=== PATIENT | male | born 1935 | race Caucasian/White ===

== ENCOUNTER 2025-04-20 12:22 | Outpatient (OUT) | payer MEDICARE, OTHER, SELFPAY ==
--- OUTSIDE RECORDS SUMMARY | 2025-04-13 10:20 | XMS_ITS | Encounter Summary ---
Author Organization [facility] Address [address] [place] [address] Care Team Providers Care Social Service Liaison Name Role Phone Helen Cagle MD Unavailable Helen Cagle MD Primary Care Provider [phone] Farzana Jimenez RN Unavailable [phone] Reason for Visit * ReasonCommentsMedicare Annual Wellness Visit Subsequent Encounter Details DateTypeDepartmentCare Team (Latest Contact Info)Zjthygrxqac65/19/2025 10:20 AM ESTOffice Visit [facility] [address] [place] [address] Helen Cagle MD [address] [place], [place] [phone] Chronic atrial fibrillation (HCC) (Primary Dx); Hyperglycemia; Routine general medical examination at a health care facility; Primary open angle glaucoma (POAG) of both eyes, mild stage; Morbid obesity (CMS-HCC); Mixed hyperlipidemia; Arthritis of both hips; Acquired hypothyroidism; Renal cyst, acquired, right; Liver lesion, right lobe; Other specified glaucoma, unspecified laterality; Benign essential hypertension; Thrombophilia (HHS-HCC); Sensorineural hearing loss, asymmetrical; 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 Social History Tobacco UseTypesPacks/DayYears UsedDateSmoking Tobacco: UztglgJcfpzxffnb703.1 1953 - 11/23/1976PipeCigarsSmokeless Tobacco: Never Tobacco Cessation:Counseling Given: Not Answered Alcohol UseStandard Drinks/WeekCommentsNot Currently2 (1 standard drink = 0.6 oz pure alcohol)social [id number] Health LiteracyAnswerDate RecordedHow often do you need to have someone help you when you read instructions, pamphlets, or other written material from your doctor or pharmacy?Ojnooh3204/05/2024Humiliation, Afraid, Rape, and Kick questionnaireAnswerDate RecordedWithin the last year, have you been afraid of your partner or ex-partner?No11/26/2022Within the last year, have you been humiliated or emotionally abused in other ways by your partner or ex-partner?No11/26/2022Within the last year, have you been kicked, hit, slapped, or otherwise physically hurt by your partner or ex-partner?No 11/26/2022Within the last year, have you been raped or forced to have any kind of sexual activity by your partner or ex-partner?No11/26/2022Social Connection and Isolation PanelAnswerDate RecordedIn a typical week, how many times do you talk on the phone with family, friends, or neighbors?More than three times a week04/05/2024How often do you get together with friends or relatives?More than three times a week04/05/2024How often do you attend caodaism or tenriism services?More than 4 times per year4Do you belong to any clubs or organizations such as caodaism groups, unions, fraternal or athletic groups, or school groups?Yes04/05/2024How often do you attend meetings of the clubs or organizations you belong to?More than 4 times per year04/05/2024re you , , , , never , or living with a partner? 04/05/2024UDIT-CAnswerDate RecordedQ1: How often do you have a drink containing alcohol?Monthly or less04/05/2024Q2: How many drinks containing alcohol do you have on a typical day when you are drinking?1 or Q3: How often do you have six or more drinks on one occasion?Never04/05/2024Overall Financial Resource Strain (CARDIA)AnswerDate RecordedHow hard is it for you to pay for the very basics like food, housing, medical care, and heating?Not hard at all 04/05/2024HQ-2AnswerDate RecordedPatient Health Questionnaire-2 Score0 04/06/2025[facility] [place] [facility] - Occupational Stress QuestionnaireAnswerDate RecordedDo you feel stress - tense, restless, nervous, or anxious, or unable to sleep at night because yourmind is troubled all the time - these days?Only a gfrtbe4104/05/2024Exercise Vital SignAnswerDate Recorded On average, how many days per week do you engage in moderate to strenuous exercise (like a brisk walk)?4 days04/05/2024On average, how many minutes do you engage in exercise at this level?10 min04/05/2024Hunger Vital SignAnswerDate RecordedWithin the past 12 months, you worried that your food would run out before you got the money to buymore.Never true04/05/2024Within the past 12 months, the food you bought just didn't last and you didn't have money to get more.Never true04/05/2024RAPARE - TransportationAnswerDate RecordedIn the past 12 months, has lack of transportation kept you from medical appointments or from getting medications?No04/05/2024In the past 12 months, has lack of transportation kept you from meetings, work, or from getting things needed for daily living?No04/05/2024Housing Stability Vital SignAnswerDate RecordedIn the last 12 months, was there a time when you were not able to pay the mortgage or rent on time?No11/26/2022In the last 12 months, how many places have you lived?1 11/26/2022In the last 12 months, was there a time when you did not have a steady place to sleep or slept in ashelter (including now)?No11/26/2022Housing Stability Vital SignAnswerDate RecordedIn the last 12 months, was there a time when you were not able to pay the mortgage or rent on time?No04/05/2024In the past 12 months, how many times have you moved where you were living? At any time in the past 12 months, were you homeless or living in a mcfp (including now)?No04/05/2024Sex and Gender InformationValueDate RecordedSex Assigned at BirthNot on fileLegal UsfNzid4808/07/2022 7:37 PM EDTGender Identity Male08/07/2022 7:37 PM EDTSexual OrientationNot on filedocumented as of this encounter Last Filed Vital Signs Vital SignReadingTime TakenCommentsBlood Rpccblxq626/6404/13/2025 9:59 AM EST Cmvwk160504/13/2025 9:59 AM ESTTemperature--Respiratory Ymnu138006/13/2024 9:59 AM ESTOxygen Aqlsscxnyt78%04/13/2025 9:59 AM ESTInhaled Oxygen Concentration-- Xxpaek832 kg (222 lb 6.4 oz)04/13/2025 9:59 AM HODLjqhhr961.4 cm (5' 10.25 ) 04/13/2025 9:59 AM ESTBody Mass Index31.6804/13/2025 9:59 AM ESTdocumented in this encounter Progress Notes * Helen Cagle MD - 04/13/2025 10:20 AM ESTAssociated Problem(s): Chronic atrial fibrillation (HCC) Orders: CBC and differential; Future Comprehensive metabolic panel; Future Unable to tolerate anticoagulation due to g bleeds Managed by cardiology * Helen Cagle MD - 04/13/2025 10:20 AM ESTAssociated Problem(s): Primary open angle glaucoma (POAG) of both eyes, mild stage Manaed by optho * Helen Cagle MD - 04/13/2025 10:20 AM ESTAssociated Problem(s): Morbid obesity (CMS-HCC) stable * Helen Cagle MD - 04/13/2025 10:20 AM ESTAssociated Problem(s): Mixed hyperlipidemia On statin * Helen Cagle MD - 04/13/2025 10:20 AM ESTAssociated Problem(s): Liver lesion, right lobe * Helen Cagle MD - 04/13/2025 10:20 AM ESTAssociated Problem(s): Hip arthritis * Helen Cagle MD - 04/13/2025 10:20 AM ESTAssociated Problem(s): Acquired hypothyroidism levothyroxine * Helen Cagle MD - 04/13/2025 10:20 AM ESTAssociated Problem(s): Renal cyst, acquired, right * Helen Cagle MD - 04/13/2025 10:20 AM ESTAssociated Problem(s): Glaucoma Managed by optho * Helen Cagle MD - 04/13/2025 10:20 AM ESTAssociated Problem(s): Benign essential hypertension Stable norvasc terazosin * Helen Cagle MD - 04/13/2025 10:20 AM ESTAssociated Problem(s): Thrombophilia (HHS-HCC) * Helen Cagle MD - 04/13/2025 10:20 AM ESTAssociated Problem(s): Sensorineural hearing loss, asymmetrical * Helen Cagle MD - 04/13/2025 10:20 AM EST Images from the original note were not included. Subjective ?Quick Links Last Note in Specialty Snapshot Edit RFV/CC Edit Screenings Current Meds Patient ID: Rhonda Pond is a 89 y.o. male who presents for Medicare Annual Wellness Visit Subsequent. HPI Over the past 2 weeks, how often have you been bothered by any of the following problems? Little interest or pleasure in doing things: (Patient-Rptd) (P) Not at all Feeling down, depressed, or hopeless: (Patient-Rptd) (P) Not at all Patient Health Questionnaire-2 Score: (Patient-Rptd) (P) 0 Over the past 2 weeks, how often have you been bothered by any of the following problems? Trouble falling or staying asleep, or sleeping too much: Not at all Feeling tired or having little energy: Not at all Poor appetite or overeating: Not at all Feeling bad about yourself - or that you are a failure or have let yourself or your family down: Not at all Trouble concentrating on things, such as reading the newspaper or watching television: Not at all Moving or speaking so slowly that other people could have noticed? Or the opposite - being so fidgety or restless that you have been moving around a lot more than usual.: Not at all Thoughts that you would be better off or hurting yourself in some way: Not at all Patient Health Questionnaire-9 Score: 0 Ascencio Fall Risk History of Falling, Immediate or Within 3 Months: (Patient-Rptd) (P) No Secondary Diagnosis: (Patient-Rptd) (P) No Ambulatory Aid: (Patient-Rptd) (P) Crutches/cane/walker Intravenous Therapy/Heparin Lock: (Patient-Rptd) (P) Yes Gait/Transferring: (Patient-Rptd) (P) Normal/bedrest/immobile Mental Status: (Patient-Rptd) (P) Oriented to own ability Ascencio Fall Risk Score: (Patient-Rptd) (P) 35 Health Risk Assessment Form Do you need help eating, bathing, using the toilet, dressing, or getting around your home?: (Patient-Rptd) (P) No Can you prepare your own meals?: (Patient-Rptd) (P) No Can you do your own housework without help?: Yes Can you shop for groceries or clothes without help?: (Patient-Rptd) (P) Yes Do you exercise for about 20 minutes 3 or more days a week?: (Patient-Rptd) (P) No How confident are you that you can control and manage most of your health problems?: (Patient-Rptd)(P) Somewhat confident Can you mange your money, credit cards and accounts, pay bills and taxes?: (Patient-Rptd) (P) Yes Vision Screening: Yes, no gross abnormalities Hearing Screening: Yes, no gross abnormalities Cognitive Screening Self Assessment: No overt cognitive deficiency is apparent by direct observation Three Word Registration: [place], [place], Pickle Clock Drawing: Normal Clock - 2 Three Word Recall: All 3 words correct - 3 Total Score (0-5 Points): 5 Pain Assessment Pain Score: (Patient-Rptd) (P) 4 History of Present Illness The patient is an 89-year-old male who presents for preoperative clearance. He has been in communication with his surgical aide regarding the use of Eliquis. He reports no chest pain but experiences shortness of breath during rapid walking or simultaneous talking and walking,which resolves quickly. He maintains a regular walking routine. He has a history of gastrointestinal bleeding and is scheduled for surgery with Dr. Medina. ?Quick Review Review Full History Edit History Meds - Current Medications[1] --- PMH - A-fib (HCC) Actinic keratosis Allergic Cataract Clotting disorder (HHS-HCC) Glaucoma HL (hearing loss) Hypertension Iron deficiency anemia due to chronic blood loss Varicella Visual impairment Objective ?Quick Links Add Vitals Timeline (Adult) Labs Imaging Results Review Trend Vitals ?? Avoid pulling in long tables of results. Comment on relevant results to support your medical decision making. BP 116/64 (BP Location: Left arm, Patient Position: Sitting, BP Cuff Size: Adult) Pulse 57 Resp18 Ht 5' 10.25 Wt 222 lb 6.4 oz SpO2 96% BMI 31.68 kg/m?? Physical Exam Constitutional: Appearance: He is normal weight. HENT: Head: Normocephalic and atraumatic. Nose: Nose normal. No congestion. Mouth/Throat: Mouth: Mucous membranes are moist. Eyes: Extraocular Movements: Extraocular movements intact. Pupils: Pupils are equal, round, and reactive to light. Cardiovascular: Rate and Rhythm: Normal rate and regular rhythm. Pulmonary: Effort: Pulmonary effort is normal. No respiratory distress. Breath sounds: Normal breath sounds. No wheezing. Musculoskeletal: General: No swelling or deformity. Cervical back: Normal range of motion and neck supple. Right lower leg: No edema. Left lower leg: No edema. Skin: General: Skin is warm and dry. Findings: No rash. Neurological: General: No focal deficit present. Mental Status: He is alert and oriented to person, place, and time. Cranial Nerves: No cranial nerve deficit. Gait: Gait normal. Psychiatric: Mood and Affect: Mood normal. Behavior: Behavior normal. Physical Exam ?Quick Links Full Problem List Cardiology Chronic Pain COPD GI Hypertension Thyroid Assessment & Plan Chronic atrial fibrillation (HCC) Orders: CBC and differential; Future Comprehensive metabolic panel; Future Unable to tolerate anticoagulation due to g bleeds Managed by cardiology Hyperglycemia Orders: Hemoglobin A1c; Future Routine general medical examination at a health care facility As of your medicare wellness visit , the medical team reviewed your chart and chronic problems and treatment. Your information regarding healthy diet, activity, immunizations, depression screening, advance directives , activities of daily living medications, cognitive screening and risk factors fordisease were reviewed or addressed Primary open angle glaucoma (POAG) of both eyes, mild stage Manaed by optho Morbid obesity ([facility]) stable Mixed hyperlipidemia On statin Arthritis of both hips Acquired hypothyroidism levothyroxine Renal cyst, acquired, right Liver lesion, right lobe Other specified glaucoma, unspecified laterality Managed by optho Benign essential hypertension Stable norvasc terazosin Thrombophilia ([facility]) Sensorineural hearing loss, asymmetrical Assessment & Plan 1. Preoperative clearance. He is scheduled for surgery with Dr. Medina. He has been in touch with his surgical aide regarding the use of Eliquis. He reports no chest pain but experiences shortness of breath during rapid walkingor simultaneous talking and walking, which resolves quickly. [1] albuterol HFA (Ventolin HFA) 90 mcg/act inhaler amLODIPine (Norvasc) 5 MG tablet apixaban (Eliquis) 5 MG tablet citalopram (CeleXA) 20 MG tablet finasteride (Proscar) 5 MG tablet furosemide (Lasix) 20 MG tablet levothyroxine (Synthroid, Levoxyl) 50 MCG tablet loratadine (Claritin) 10 MG tablet losartan (Cozaar) 25 MG tablet mometasone (Elocon) 0.1 % cream Multiple Vitamins-Minerals (MULTIVITAMIN ADULT, MINERALS, PO) ofloxacin (Floxin) 0.3 % otic solution omega-3 (Fish Oil) 1000 MG capsule simvastatin (Zocor) 20 MG tablet terazosin (Hytrin) 5 MG capsule timolol (Timoptic) 0.25 % ophthalmic solution documented in this encounter Plan of Treatment DateTypeDepartmentCare Team (Latest Contact Info)Kmarxnixrvf06/20/2026 10:20 AM EDTOffice Visit [facility] [address] [place] [phone] Helen Cagle MD [address], [place] [phone] 03/14/2026 10:00 AM EDTOffice Visit [facility] [address] [place] [address] Angeline Brennan, PAY AGENT-CERTIFIED PERSONAL CHEF [address] [place] [address] documented as of this encounter Procedures Procedure NamePriorityDate/TimeAssociated DiagnosisCommentsCBC (INCLUDES DIFF/PLT)Iuuqdwn7504/13/2025 11:23 AM EST Chronic atrial fibrillation (HCC) HEMOGLOBIN U5ANwbyuxf34/19/2025 11:23 AM EST Hyperglycemia COMPREHENSIVE METABOLIC XPXYGNibexnc75/19/2025 11:23 AM EST Chronic atrial fibrillation (HCC) documented in this encounter Results * (ABNORMAL) Hemoglobin A1c (04/13/2025 11:23 AM EST)ComponentValueRef RangeTest MethodAnalysis TimePerformed AtPathologist SignatureHemoglobin A1C5.9(H)<5.7 %QUESTComment: For someone without known diabetes, a hemoglobin A1c value between 5.7% and 6.4% is consistent with prediabetes and should be confirmed with a follow-up test. For someone with known diabetes, a value <7% indicates that their diabetes is well controlled. A1c targets should be individualized based on duration of diabetes, age, comorbid conditions, and other considerations. This assay result is consistent with an increased risk of diabetes. Currently, no consensus exists regarding use of hemoglobin A1c for diagnosis of diabetes for children. Specimen (Source)Anatomical Location / LateralityCollection Method / Volume Collection TimeReceived TimeBloodVenous blood specimen / Zcznhod8904/13/2025 11:23 AM EST04/13/2025 11:23 AM EST Narrative Resulting Agency Comment Performing Organization Information ?Site ID: QPT ?Name: [facility] ?Address: [address] [place] [phone] ?Director: Cruz Bashir MD Authorizing ProviderResult TypeResult StatusHelen Cagle MDLAB BLOOD ORDERABLES Final ResultPerforming OrganizationAddressCity/State/ZIP CodePhone Number QUEST * Comprehensive metabolic panel (04/13/2025 11:23 AM EST)ComponentValueRef Range Test MethodAnalysis TimePerformed AtPathologist TijlneqqjRozfjui9729 - 99 mg/dLQUESTComment: ? Fasting reference interval LDB086 - 25 mg/dLQUESTCreatinine1.030.70 - 1.22 mg/kHVDGEWFWWO82> OR = 60 mL/min/1.90l7YUGKRMQC/CREATININE RATIOSEE NOTE: (calc)QUESTComment: ?? Not Reported: BUN and Creatinine are within ?? reference range. ? Dcldeg284580 - 146 mmol/LQUESTPotassium, Bld4.13.5 - 5.3 mmol/CIXJLPDvdrkpuv274 98 - 110 mmol/LQUESTCarbon Acpywxv4489 - 32 mmol/LQUESTCalcium9.18.6 - 10.3 mg/dLQUESTPROTEIN, TOTAL7.46.1 - 8.1 g/dLQUESTALBUMIN4.43.6 - 5.1 g/dLQUEST GLOBULIN3.01.9 - 3.7 g/dL (calc)QUESTALBUMIN/GLOBULIN RATIO1.51.0 - 2.5 (calc) QUESTBILIRUBIN, TOTAL0.70.2 - 1.2 mg/dLQUESTALKALINE HGWWIKAWMNL3412 - 144 U/L QAJJAKAR3218 - 35 U/YDLYFRSRT776 - 46 U/LQUESTSpecimen (Source)Anatomical Location / LateralityCollection Method / VolumeCollection TimeReceived TimeBlood Venous blood specimen / Hvesmoj1204/13/2025 11:23 AM EST04/13/2025 11:23 AM EST Narrative Resulting Agency Comment Performing Organization Information ?Site ID: QPT ?Name: [facility] ?Address: [address] [place] [address], [address] [place] [phone] ?Director: Cruz Bashir MD Authorizing ProviderResult TypeResult StatusHelen Cagle MDLAB BLOOD ORDERABLES Final ResultPerforming OrganizationAddressCity/State/ZIP CodePhone Number [facility] * CBC and differential (04/13/2025 11:23 AM EST)ComponentValueRef RangeTest MethodAnalysis TimePerformed AtPathologist SignatureWHITE BLOOD CELL COUNT5.7 3.8 - 10.8 Thousand/uLQUESTRED BLOOD CELL COUNT4.314.20 - 5.80 Million/uLQUEST IPVKXRVPXK95.513.2 - 17.1 g/pMPEOJQJGJUNXQMWG54.338.5 - 50.0 %AZTCXTTA43.880.0 - 100.0 xITFFZDYXV40.327.0 - 33.0 baXASHJWYUW88.732.0 - 36.0 g/dLQUEST Comment: For adults, a slight decrease in the calculated MCHC value (in the range of 30 to 32 g/dL) is most likely not clinically significant; however, it should be interpreted with caution in correlation with other red cell parameters and the patient's clinical condition. RDW11.711.0 - 15.0 %QUESTPLATELET VOJGU701868 - 400 Thousand/qFZIXRVTZO37.57.5 - 12.5 fLQUESTABSOLUTE NEUTROPHILS3,4141,500 - 7,800 cells/uLQUESTABSOLUTE LYMPHOCYTES1,028856 - 3,900 cells/uLQUESTABSOLUTE NOQMIHLPO684033 - 950 cells/uL QUESTABSOLUTE GPTRYRHMQZD97822 - 500 cells/uLQUESTABSOLUTE OEOLHEBBI854 - 200 cells/qCTIMZQXKLNAJSJSBS68.9%XNUTAVBBPHKCXKBO32.4%AXWVPZTQFWKYUS81.3%QUEST EOSINOPHILS3.7%QUESTBASOPHILS0.7%QUESTSpecimen (Source)Anatomical Location / LateralityCollection Method / VolumeCollection TimeReceived TimeBloodVenous blood specimen / Jqdyyny3504/13/2025 11:23 AM EST04/13/2025 11:23 AM EST Narrative Resulting Agency Comment Performing Organization Information ?Site ID: QPT ?Name: [facility] ?Address: [address] [place] [address], [address] [place] [phone] ?Director: Cruz Bashir MD Authorizing ProviderResult TypeResult StatusHelen Cagle MDLAB BLOOD ORDERABLES Final ResultPerforming OrganizationAddressCity/State/ZIP CodePhone Number [facility] documented in this encounter Visit Diagnoses Diagnosis Chronic atrial fibrillation (HCC)- Primary Atrial fibrillation Hyperglycemia Other abnormal glucose Routine general medical examination at a health care facility Primary open angle glaucoma (POAG) of both eyes, mild stage Morbid obesity (CMS-HCC) Morbid obesity Mixed hyperlipidemia Arthritis of both hips Acquired hypothyroidism Unspecified hypothyroidism Renal cyst, acquired, right Liver lesion, right lobe Other specified disorders of liver Other specified glaucoma, unspecified laterality Benign essential hypertension Essential hypertension, benign 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
--- OUTSIDE RECORDS SUMMARY | 2025-04-20 12:27 | XMS_ITS | Encounter Summary ---
Author Organization [facility] Address [address] [place] [address] Care Team Providers Care Property Administrator Name Role Phone Helen Cagle MD Unavailable Helen Cagle MD Primary Care Provider [phone] Farzana Jimenez RN Unavailable [phone] Encounter Details DateTypeDepartmentCare Team (Latest Contact Info)Jlukynwuwrm01/25/2025Telephone [facility] [address] [place] [address] Helen Cagle MD [address] [place] [address] Social History Tobacco UseTypesPacks/DayYears UsedDateSmoking Tobacco: JciawkHxdjyuumuy204.1 1952 - 11[birth year]23[birth year]1976PipeCigarsSmokeless Tobacco: NeverAlcohol UseStandard Drinks/WeekCommentsNot Currently2 (1 standard drink = 0.6 oz pure alcohol)social [id number] Health LiteracyAnswerDate RecordedHow often do you need to have someone help you when you read instructions, pamphlets, or other written material from your doctor or pharmacy?Lisrnl0304/05/2024Humiliation, Afraid, Rape, and Kick questionnaireAnswerDate RecordedWithin the last year, have you been afraid of your partner or ex-partner?No11/26/2022Within the last year, have you been humiliated or emotionally abused in other ways by your partner or ex-partner?No11/26/2022Within the last year, have you been kicked, hit, slapped, or otherwise physically hurt by your partner or ex-partner?No11/26/2022Within the last year, have you been raped or forced to have any kind of sexual activity by your partner or ex-partner?No11/26/2022Social Connection and Isolation Panel AnswerDate RecordedIn a typical week, how many times do you talk on the phone with family, friends, or neighbors?More than three times a week04/05/2024How often do you get together with friends or relatives?More than three times a week 04/05/2024How often do you attend worship or taoism services?More than 4 times per year4Do you belong to any clubs or organizations such as worship groups, unions, fraternal or athletic groups, or school groups?Yes04/05/2024How often do you attend meetings of the clubs or organizations you belong to?More than 4 times per year04/05/2024re you , , , , never , or living with a partner?Yxdzfyt5504/05/2024UDIT-CAnswerDate RecordedQ1: How often do you have a drink containing alcohol?Monthly or less 04/05/2024Q2: How many drinks containing alcohol do you have on a typical day when you are drinking?1 or Q3: How often do you have six or more drinks on one occasion?Never04/05/2024Overall Financial Resource Strain (CARDIA) AnswerDate RecordedHow hard is it for you to pay for the very basics like food, housing, medical care, and heating?Not hard at all04/05/2024HQ-2AnswerDate RecordedPatient Health Questionnaire-2 Lhckt40006/06/2024[facility] [place] of Occupational Health - Occupational Stress QuestionnaireAnswerDate RecordedDo you feel stress - tense, restless, nervous, or anxious, or unable to sleep at night because yourmind is troubled all the time - these days?Only a ygweia0304/05/2024 Exercise Vital SignAnswerDate RecordedOn average, how many days per week do you engage in moderate to strenuous exercise (like a brisk walk)?4 days04/05/2024On average, how many minutes do you engage in exercise at this level?10 min 04/05/2024Hunger Vital SignAnswerDate RecordedWithin the past 12 months, you worried that your food would run out before you got the money to buymore.Never true04/05/2024Within the past 12 months, the food you bought just didn't last and you didn't have money to get more.Never true04/05/2024RAPARE - TransportationAnswerDate RecordedIn the past 12 months, has lack of transportation kept you from medical appointments or from getting medications?No 04/05/2024In the past 12 months, has lack of transportation kept you from meetings, work, or from getting things needed for daily living?No04/05/2024 Housing Stability Vital SignAnswerDate RecordedIn the last 12 months, was there a time when you were not able to pay the mortgage or rent on time?No11/26/2022In the last 12 months, how many places have you lived?In the last 12 months, was there a time when you did not have a steady place to sleep or slept in [facility] (including now)?No11/26/2022Housing Stability Vital SignAnswerDate RecordedIn the last 12 months, was there a time when you were not able to pay the mortgage or rent on time?No04/05/2024In the past 12 months, how many times have you moved where you were living?t any time in the past 12 months, were you homeless or living in a residential (including now)?No04/05/2024Sex and Gender InformationValueDate RecordedSex Assigned at BirthNot on fileLegal AcjRnoy2808/07/2022 7:37 PM EDTGender CjqpzzpeNhfo40/15/2023 7:37 PM EDTSexual OrientationNot on filedocumented as of this encounter Miscellaneous Notes * Telephone Encounter - Diane White MA - 04/19/2025 1:18 PM EST Faxed. * Telephone Encounter - Luis Manuel Smyth - 04/19/2025 12:49 PM EST Office notes needs faxed to Osiris thompson at documented in this encounter Plan of Treatment DateTypeDepartmentCare Team (Latest Contact Info)Ctncicpmasv55/20/2026 10:20 AM EDTOffice Visit [facility] [address] [place] [phone] Helen Cagle MD [address] [place] [address] 03/14/2026 10:00 AM EDTOffice Visit [facility] [address] [place] [phone] Angeline Brennan, GLOBAL MARKETING MANAGER-OXYGEN THERAPIST [address] [place] [address] documented as of this encounter Visit Diagnoses Not on filedocumented in this encounter Additional Health Concerns AssessmentNoted TimePHQ-9 Depression Total Score: 5:33 PM EST documented as of this encounter Care Teams Team MemberRelationshipSpecialtyStart DateEnd Date Helen Cagle MD [address] [place] [address] PCP - ACO Reach10/17/22 Helen Cagle MD [address] [place] [address] PCP - GeneralFamily Medicine11/05/22 Farzana Jimenez, RACHELLE [address] [place] [address] Registered NurseFamily Medicine8/20/25documented as of this encounter
--- OUTSIDE RECORDS SUMMARY | 2025-04-20 12:27 | XMS_ITS | Encounter Summary ---
Author Organization [facility] Address [address] [place] [address] Care Team Providers Care Peace Officer Name Role Phone Helen Cagle MD Unavailable Helen Cagle MD Primary Care Provider [phone] Farzana Jimenez RN Unavailable [phone] Encounter Details DateTypeDepartmentCare Team (Latest Contact Info)Bwtrbcurlss49/19/2025Travel Social History Tobacco UseTypesPacks/DayYears UsedDateSmoking Tobacco: CdffizNmpctdwbhb207.1 1952 - 11[birth year]1976PipeCigarsSmokeless Tobacco: NeverAlcohol UseStandard Drinks/WeekCommentsNot Currently2 (1 standard drink = 0.6 oz pure alcohol)social [id number] Health LiteracyAnswerDate RecordedHow often do you need to have someone help you when you read instructions, pamphlets, or other written material from your doctor or pharmacy?Lotuib2504/05/2024Humiliation, Afraid, Rape, and Kick questionnaireAnswerDate RecordedWithin the [...] a week 04/05/2024How often do you attend tenriism or gnosticism services?More than 4 times per year04/05/2024o you belong to any clubs or organizations such as tenriism groups, unions, fraLab4U or athletic groups, or school groups?Yes04/05/2024How often do you attend meetings of the clubs or organizations you belong to?More than 4 times per year04/05/2024re you , , , , never , or living with a partner?Nfhxopu2404/05/2024UDIT-CAnswerDate RecordedQ1: How often do you have a [...] heating?Not hard at all04/05/2024HQ-2AnswerDate RecordedPatient Health Questionnaire-2 Zjvds32806/06/2024[facility] [place] of Occupational Health - Occupational Stress QuestionnaireAnswerDate RecordedDo you feel stress - tense, restless, nervous, or anxious, or unable to sleep at night because yourmind is troubled all the time - these days?Only a ektcth1604/05/2024 Exercise Vital SignAnswerDate RecordedOn average, how many [...] steady place to sleep or [facility] ([facility])?No11/26/2022Housing Stability Vital SignAnswerDate RecordedIn the last 12 months, was there a time when you were not able to pay the mortgage or rent on time?No04/05/2024In the past 12 months, how many times have you moved where you were living?t any time in the past 12 months, were you homeless or living in a long-term (including now)?No04/05/2024Sex and Gender InformationValueDate RecordedSex Assigned at BirthNot on fileLegal NgjRjmz5408/07/2022 7:37 PM EDTGender JfjnliwbYhwb93/15/2023 7:37 PM EDTSexual OrientationNot on filedocumented as of this encounter Plan of Treatment DateTypeDepartmentCare Team (Latest Contact Info)Lzjmbixnfpf67/20/2026 10:20 AM EDTOffice Visit [facility] [address] [facility] [address] [place] [address] Helen Cagle MD [address] [place], [place] [address] 03/14/2026 10:00 AM EDTOffice Visit [facility] [address] [place] [phone] Angeline Brennan APRN-HIGH SCHOOL PRINCIPAL [address] [place] [address] documented as of this encounter Visit Diagnoses Not on filedocumented in this encounter Additional Health Concerns AssessmentNoted TimePHQ-9 Depression Total Score: 5:33 PM EST documented as of this encounter Care Teams Team MemberRelationshipSpecialtyStart DateEnd Date Helen Cagle MD [address] [place], [place] [phone] PCP - ACO [facility]10/17/22 Helen Cagle MD [address] [facility] [place] [address] PCP - GeneralFamily Medicine11/05/22 Farzana Jimenez, RACHELLE [address] [place] [address] Registered NurseFamily Medicine01/12/25documented as of this encounter
--- OUTSIDE RECORDS SUMMARY | 2025-04-20 12:27 | XMS_ITS | Encounter Summary ---
Author Organization [facility] Address [address] [place] [address] Care Team Providers Care Web Applications Developer Name Role Phone Helen Cagle MD Unavailable Helen Cagle MD Primary Care Provider [phone] Farzana Jimenez RN Unavailable [phone] Encounter Details DateTypeDepartmentCare Team (Latest Contact Info)Hsncaykihbq17/12/2025Travel Social History Tobacco UseTypesPacks/DayYears UsedDateSmoking Tobacco: DftyvsLhhayuaock729.1 1952 - 11/23/1975PipeCigarsSmokeless Tobacco: NeverAlcohol UseStandard Drinks/WeekCommentsNot Currently2 (1 standard drink = 0.6 oz pure alcohol)social [id number] Health LiteracyAnswerDate RecordedHow often do you need to have someone help you when you read instructions, pamphlets, or other written material from your doctor or pharmacy?Idsqkm4704/05/2024Humiliation, Afraid, Rape, and Kick questionnaireAnswerDate RecordedWithin the [...] a week 04/05/2024How often do you attend synagogue or anglican services?More than 4 times per year04/05/2024o you belong to any clubs or organizations such as synagogue groups, unions, fraHouseTab or athletic groups, or school groups?Yes04/05/2024How often do you attend meetings of the clubs or organizations you belong to?More than 4 times per year04/05/2024re you , , , , never , or living with a partner?Xfsaeih2704/05/2024UDIT-CAnswerDate RecordedQ1: How often do you have a [...] heating?Not hard at all04/05/2024HQ-2AnswerDate RecordedPatient Health Questionnaire-2 Kphbg75406/06/2024[facility] [place] of Occupational Health - Occupational Stress QuestionnaireAnswerDate RecordedDo you feel stress - tense, restless, nervous, or anxious, or unable to sleep at night because yourmind is troubled all the time - these days?Only a jntgoc8804/05/2024 Exercise Vital SignAnswerDate RecordedOn average, how many [...] were you homeless or living in a fpc (including now)?No04/05/2024Sex and Gender InformationValueDate RecordedSex Assigned at BirthNot on fileLegal MpgTfzu6308/07/2022 7:37 PM EDTGender WuarkfsmMmkp33/15/2023 7:37 PM EDTSexual OrientationNot on filedocumented as of this encounter Functional Status * Over the past 2 weeks, how often have you been bothered by any of the following problems?QuestionAnswerDate of AssessmentAuthorPatient Health Questionnaire-2 Esugr68506/06/2024 5:33 PM ESTMychart, Generic * Little interest or pleasure in doing thingsAnswerDate of AssessmentAuthorNot at all04/06/2025 5:33 PM ESTMychart, Generic * Feeling down, depressed, or hopelessAnswerDate of AssessmentAuthorNot at all 04/06/2025 5:33 PM ESTMychart, Generic * QuestionAnswerDate of AssessmentAuthorTrouble falling or staying asleep, or sleeping too muchNot at all04/06/2025 5:33 PM Diane Recinos, MAFeeling tired or having little energyNot at all04/06/2025 5:33 PM Diane Recinos, MAPoor appetite or overeatingNot at all04/06/2025 5:33 PM EST Diane White, MAFeeling bad about yourself - or that you are a failure or have let yourself or your family downNot at all04/06/2025 5:33 PM Diane Recinos, MATrouble concentrating on things, such as reading the newspaper or watching televisionNot at all04/06/2025 5:33 PM Diane Recinos, MAMoving or speaking so slowly that other people could have noticed? Or the opposite - being so fidgety or restless that you have been moving around a lot more than usual.Not at all04/06/2025 5:33 PM Diane Recinos, MAThoughts that you would be better off or hurting yourself in some wayNot at all04/06/2025 5:33 PM Diane Recinos MAPatient Health Questionnaire-9 Score0 04/06/2025 5:33 PM Diane Recinos MA documented as of this encounter Plan of Treatment DateTypeDepartmentCare Team (Latest Contact Info)Jvdqcdcpcxu94/20/2026 10:20 AM EDTOffice Visit [facility] [address] [place] [address] Helen Cagle MD [address] [place] [address] 03/14/2026 10:00 AM EDTOffice Visit [facility] [address] [place] [address] Angeline Brennan, SPRAY MACHINE TENDER-PROCESSING TALC AND BORATE SUPERVISOR [address] [place] [address] documented as of this encounter Visit Diagnoses Not on filedocumented in this encounter Additional Health Concerns AssessmentNoted TimePHQ-9 Depression Total Score: 5:33 PM EST documented as of this encounter Care Teams Team MemberRelationshipSpecialtyStart DateEnd Date Helen Cagle MD [address] [facility] [address] [place], [place] [phone] PCP - ACO Reach10/17/22 Helen Cagle MD [address] [facility] [address] [place], [place] [address] PCP - GeneralFamily Medicine11/05/22 Farzana Jimenez, RACHELLE [address] [facility] [address] [facility] [place] [place] [address] Registered NurseFamily Medicine01/12/25documented as of this encounter
--- OUTSIDE RECORDS SUMMARY | 2025-04-20 12:27 | XMS_ITS | Encounter Summary ---
Author Organization [facility] Address [address] [place] [address] Care Team Providers Care Baton Teacher Name Role Phone Helen Cagle MD Unavailable Helen Cagle MD Primary Care Provider [phone] Farzana Jimenez RN Unavailable [phone] Encounter Details DateTypeDepartmentCare Team (Latest Contact Info)Fsmerekgcgq95/20/2025Results Follow-Up [facility] [address] [place] [address] Helen Cagle MD [address] [place], [place] [phone] CBC and differential, Comprehensive metabolic panel, Hemoglobin A1c Social History Tobacco UseTypesPacks/DayYears UsedDateSmoking Tobacco: ZmcmueVccqilodkx429.1 1952 - 11/23/1975PipeCigarsSmokeless Tobacco: NeverAlcohol UseStandard Drinks/WeekCommentsNot Currently2 (1 standard drink = 0.6 oz pure alcohol)social eajqB4533 Health LiteracyAnswerDate RecordedHow often do you need to have someone help you when you read instructions, pamphlets, or other written material from your doctor or pharmacy?Bqesnl3804/05/2024Humiliation, Afraid, Rape, and Kick questionnaireAnswerDate RecordedWithin the [...] a week 04/05/2024How often do you attend yarsani or zoroastrianism services?More than 4 times per year04/05/2024o you belong to any clubs or organizations such as yarsani groups, unions, fraternal or athletic groups, or school groups?Yes04/05/2024How often do you attend meetings of the clubs or organizations you belong to?More than 4 times per year04/05/2024re you , , , , never , or living with a partner?Hgcjibe7704/05/2024UDIT-CAnswerDate RecordedQ1: How often do you have a [...] heating?Not hard at all04/05/2024HQ-2AnswerDate RecordedPatient Health Questionnaire-2 Kvasg72606/06/2024[facility] [place] of Occupational Health - Occupational Stress QuestionnaireAnswerDate RecordedDo you feel stress - tense, restless, nervous, or anxious, or unable to sleep at night because yourmind is troubled all the time - these days?Only a vxsgll5104/05/2024 Exercise Vital SignAnswerDate RecordedOn average, how many [...] steady place to sleep or slept in [place] (including now)?No11/26/2022Housing Stability Vital SignAnswerDate RecordedIn the last 12 months, was there a time when you were not able to pay the mortgage or rent on time?No04/05/2024In the past 12 months, how many times have you moved where you were living?t any time in the past 12 months, were you homeless or living in a nursing home (including now)?No04/05/2024Sex and Gender InformationValueDate RecordedSex Assigned at BirthNot on fileLegal TlzBfqq5408/07/2022 7:37 PM EDTGender MuhrrgegYclc36/15/2023 7:37 PM EDTSexual OrientationNot on filedocumented as of this encounter Plan of Treatment DateTypeDepartmentCare Team (Latest Contact Info)Ltbcsfpnvac06/20/2026 10:20 AM EDTOffice Visit [facility] [address] [facility] [place] [address] Helen Cagle MD [address] [facility] [place] [address] 03/14/2026 10:00 AM EDTOffice Visit [facility] [place] [facility] [address] [place] [phone] Angeline Brennan, STUDENT AFFAIRS DEAN-MARKETING ENGINEER [address] [place] [address] documented as of this encounter Visit Diagnoses Not on filedocumented in this encounter Additional Health Concerns AssessmentNoted TimePHQ-9 Depression Total Score: 5:33 PM EST documented as of this encounter Care Teams Team MemberRelationshipSpecialtyStart DateEnd Date Helen Cagle MD [address] [facility] [place] [address] PCP - ACO Reach10/17/22 Helen Cagle MD [address] [facility] [place] [address] PCP - GeneralFamily Medicine11/05/22 Farzana Jimenez, RACHELLE [address] [facility] [place] [address] Registered NurseFamily Medicine01/12/25documented as of this encounter
--- OUTSIDE RECORDS SUMMARY | 2025-04-20 12:27 | XMS_ITS | Clinical Summary ---
Author Organization [facility] Address [address] [place] [address] Care Team Providers Care Brine Tank Separator Operator Name Role Phone Helen Cagle MD Unavailable Helen Cagle MD Primary Care Provider [phone] Farzana Jimenez RN Unavailable [phone] Allergies Active AllergyReactionsCriticalityNoted DateCommentsAzithromycinShortness of breath,Swelling,YvoetGzya26/24/2014 Other reaction(s): Asthma SWELLING OF THROAT AND TONGUE Medications MedicationSigDispense QuantityRefillsLast FilledStart DateEnd DateStatus Multiple Vitamins-Minerals (MULTIVITAMIN ADULT, MINERALS, PO) Take 1 capsule by mouth in the morning.Active omega-3 (Fish Oil) 1000 MG capsule 2 capsules 1 (one) time each day at the same time.Active apixaban (Eliquis) 5 MG tablet every 12 (twelve) hours.06/07/2022ctive mometasone (Elocon) 0.1 % cream 1 application prn Externally Once a day for 30 day(s)Active loratadine (Claritin) 10 MG tablet Take 10 mg by mouth in the morning.Active timolol (Timoptic) 0.25 % ophthalmic solution Administer 1 drop into affected eye(s) in the morning and 1 drop in the evening. Active ofloxacin (Floxin) 0.3 % otic solution INSTILL 5 DROPS INTO EACH EAR TWICE DAILY05/14/2023ctive amLODIPine (Norvasc) 5 MG tablet Indications:Benign essential hypertensionTake 1 tablet (5 mg) by mouth Daily 30 tablet 5Active albuterol HFA (Ventolin HFA) 90 mcg/act inhaler Indications:Chronic obstructive pulmonary disease, unspecified COPD type ([facility]) Inhale 2 puffs every 4 (four) hours if needed for wheezing 18 g 11007/01/0600956Active citalopram (CeleXA) 20 MG tablet Indications:AnxietyTAKE 1 TABLET BY MOUTH DAILY 90 tablet 1105Active simvastatin (Zocor) 20 MG tablet Indications:Moderate mixed hyperlipidemia not requiring statin therapyTake 1 tablet (20 mg) by mouth at bedtime 90 tablet 305//827126/6Active terazosin (Hytrin) 5 MG capsule Indications:Benign essential hypertensionTAKE 1 CAPSULE BY MOUTH DAILY 90 capsule 5Active losartan (Cozaar) 25 MG tablet Indications:Primary hypertensionTAKE 1 TABLET BY MOUTH EVERY MORNING 90 tablet 5Active finasteride (Proscar) 5 MG tablet Indications:Elevated prostate specific antigen (PSA),NephrolithiasisTAKE 1 TABLET BY MOUTH DAILY 90 tablet 1105Active levothyroxine (Synthroid, Levoxyl) 50 MCG tablet Indications:Acquired hypothyroidismTAKE 1 TABLET BY MOUTH EVERY MORNING BEFORE A MEAL 90 tablet 5Active furosemide (Lasix) 20 MG tablet Indications:Benign essential hypertensionTAKE 1 TABLET BY MOUTH DAILY 90 tablet 5Active Active Problems ProblemNoted DateDiagnosed DateThrombophilia ([facility])09/30/2023 Assessment & Plan (04/17/2025 10:53 AM EST): Elevated prostate specific antigen (PSA)01/30/2023Fitting and adjustment of hearing aid01/30/20234394Fppodzsb32/07/2023 Assessment & Plan (04/17/2025 10:53 AM EST): 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 of anticoagulant uinlfqu4701/30/2023Other specified nbjrymcftq44/07/2023Encounter for therapeutic drug gfystkaufk27/07/2023 Sensorineural hearing loss, nyzwmdixh30/07/2023Sensorineural hearing loss, kuajawhanmid73/07/2023 Assessment & Plan (04/17/2025 10:53 AM EST): Sciatica of right side12/03/2022hronic atrial mtbkkgoyshro20/11/2023 Assessment & Plan (04/17/2025 10:53 AM EST): Orders: CBC and differential; Future Comprehensive metabolic panel; Future Unable to tolerate anticoagulation due to g bleeds Managed by cardiology Morbid mqtugqw4512/03/2022 Assessment & Plan (04/17/2025 10:53 AM EST): stable Mixed nvpwyeanvhlnbx29/11/2023 Assessment & Plan (04/17/2025 10:53 AM EST): On statin Hip hmlpbarfk37/11/2023 Assessment & Plan (04/17/2025 10:53 AM EST): Kftiavzffibvub70/11/2023Renal cyst, acquired, right12/03/2022 Overview (12/03/2022): 2.5 cm stable x several years Assessment & Plan (04/17/2025 10:53 AM EST): Primary open angle glaucoma (POAG) of both eyes, mild stage03/05/2022 Assessment & Plan (04/17/2025 10:53 AM EST): Manaed by optho Qrmvvlhzdwjsrrt26/11/2022Liver lesion, right lobe03/05/2022 Assessment & Plan (04/17/2025 10:53 AM EST): Chronic fatigue /11/2022ervical disc zlubjzed18/11/2022enign prostatic hyperplasia without urinary ghvnibhpckc14/11/3814Jqylplt37/11/2022 Acquired xkiaobkzssyxon24/11/2022 Assessment & Plan (04/17/2025 10:53 AM EST): levothyroxine Chronic pain03/05/2022enign essential ufspigpedmua33/30/2015 Assessment & Plan (04/17/2025 10:53 AM EST): Stable norvasc terazosin Resolved Problems ProblemNoted DateDiagnosed DateResolved DateBody mass index (BMI) 40.0-44.9, adult/10/2023Iron deficiency anemia due to chronic blood loss / Encounters DateTypeDepartmentCare IetxQrqtkazyyie74/25/2025Telephone [address] [place] [address] Helen Cagle MD 04/14/2025Results Follow-Up [address] [phone] Helen Cagle MD CBC and differential, Comprehensive metabolic panel, Hemoglobin A1c04/13/2025 10:20 AM ESTOffice Visit [address] [phone] Helen Cagle MD Chronic atrial fibrillation (HCC) (Primary Dx); Hyperglycemia; Routine general medical examination at a health care facility; Primary open angle glaucoma (POAG) of both eyes, mild stage; Morbid obesity (CMS-HCC); Mixed hyperlipidemia; Arthritis of both hips; Acquired hypothyroidism; Renal cyst, acquired, right; Liver lesion, right lobe; Other specified glaucoma, unspecified laterality; Benign essential hypertension; Thrombophilia (HHS-HCC); Sensorineural hearing loss, asymmetrical; MCC current use of anticoagulant dsgjisi7204/13/2025amboo flowsheet [address] [phone] Helen Cagle MD 04/13/20251699Elckka66/12/7995Msjqpt40/31/2025Patient Outreach [facility] [address] [place] [address] Farzana Jimenez, RACHELLE 03/15/2025 9:35 AM EDTOffice Visit [facility] [address] [place] [address] Felter, Angeline A, RINKMAN-SUTURE GAUGER Seborrheic keratosis (Primary Dx); Inflamed seborrheic keratosis; Sebaceous hyperplasia; Lentigines; Capillary wvddpdv4803/15/2025[facility] flowsheet [facility] [address] [place] [address] Angeline Brennan, RINKMAN-SUTURE GAUGER 03/15/20258415Plltcq23/15/2025Refill [address] [place] [phone] Helen Cagle MD Benign essential ehfnfnamhtph50/14/2271Dtldrk69/26/2025Patient Outreach [facility] [address] [place] [address] Farzana Jimenez RN 02/10/2025 10:40 AM EDTOffice Visit [address] [facility] [place] [phone] Helen Cagle MD Paronychia of finger, left (Primary Dx); Encounter for xcjltcgutzpf31/18/2025amb flowsheet [address] [place] [phone] Helen Cagle MD 02/10/20255314Wzjony62/11/2025Refill [address] [place] [phone] Helen Cagle MD Acquired iypsyqwjujfpkq09/09/2025Refill [address] [place] [phone] Helen Cagle MD Elevated prostate specific antigen (PSA); Jkimlfnbhwurlbn98/29/2025Results Follow-Up [address] [place] [phone] Helen Cagle MD CBC and differential, Comprehensive metabolic panel01/20/2025 10:20 AM EDTOffice Visit [address] [facility] [place] [address] Helen Cagle MD Iron deficiency anemia due to chronic blood loss (Primary Dx); Gastrointestinal hemorrhage, unspecified gastrointestinal hemorrhage type 01/20/2025Patient Outreach [facility] [address] [place] [address] Farzana Jimenez RN 01/20/2025amboo flowsheet [facility] [address] [place] [address] Helen Cagle MD 01/20/2025Travelfrom Last 3 Months Immunizations ImmunizationAdministration DatesNext DueInfluenza, High Dose Seasonal, Preservative Free01/28/2024,01/30/2023,02/27/2022,02/04/2019,02/07/2018, 01/22/2017,02/26/2016,02/17/2015,02/08/2013Influenza, High-dose Seasonal, Quadrivalent, Preservative Free02/10/2025,02/27/2022,03/06/2020Influenza, Seasonal, Quadrivalent, Qrnnovpowj29/13/2021Influenza, Ateqwwzvrca24/01/2022, 02/23/2021,02/23/2019,02/24/2016,02/23/2014,02/23/2013,02/24/2012,02/23/2011, 02/23/2010,03/26/2009,03/26/2008,02/23/2007,02/23/2006,02/23/2005,02/24/2004, 03/26/2003,03/04/2003,02/23/2002,03/26/2001Influenza, injectable, quadrivalent, preservative free02/27/2016Influenza, seasonal, intradermal, preservative free 02/27/2015Moderna Bivalent Booster Gwgildvbfwz80/01/2022Moderna SARS-CoV-2 50mcg/0.5mL Pyzxblz4203/26/2022Novel Gddrhjvjw-V8O6-47, all jynzxvlgjuff31/07/2010 Pneumococcal Conjugate PCV 13001/02/2015,12/26/2014Pneumococcal Polysaccharide WUAF5907,05/28/2010,05/26/2010Pneumococcal, Hbxsbuaammc55/01/1999RSV, recombinant, protein subunit RSVpreF, adjuvant reconstitu, 120mcg/0.5mL, PF (Arexvy)01/29/20245549MKKJ-LZY-1 (COVID-19) vaccine, mRNA, spike protein, LNP, bivalent, PF03/26/2022Td (adult), zwoqozntpoc95/26/8066Yiti62/30/2016,11/24/2015 Zoster, Sedriqzmipa38/04/2021,10/25/2020,10/24/2020Zoster, live01/12/2011, 12/24/2010 Family History Medical HistoryRelationNameCommentsKidney diseaseBrother 1James B SoudersVision lossBrother 2David Sofia sHeart attackFatherRichard L SoudersHeart disease FatherRichard L SoudersKidney failureMotherVision lossMotherRelationNameStatus CommentsBrother 1James B SoudersBrother 2David Sofia sAliveFatherRichard L SoudersDeceasedMotherDeceased Social History Tobacco UseTypesPacks/DayYears UsedDateSmoking Tobacco: SxphmvHxzmlmcjxh847.1 1953 - 11/23/1976PipeCigarsSmokeless Tobacco: Never Tobacco Cessation:Counseling Given: Not Answered Alcohol UseStandard Drinks/WeekCommentsNot Currently2 (1 standard drink = 0.6 oz pure alcohol)social dmyxK5205 Health LiteracyAnswerDate RecordedHow often do you need to have someone help you when you read instructions, pamphlets, or other written material from your doctor or pharmacy?Jtgvwh7004/05/2024Humiliation, Afraid, Rape, and Kick questionnaireAnswerDate RecordedWithin the [...] times a week04/05/2024How often do you attend orthodoxy or mosque services?More than 4 times per year04/05/2024o you belong to any clubs or organizations such as orthodoxy groups, unions, fraternal or athletic groups, or [...] at all 04/05/2024HQ-2AnswerDate RecordedPatient Health Questionnaire-2 Score0 04/06/2025[facility] [place] [facility] - Occupational Stress QuestionnaireAnswerDate RecordedDo you feel stress - tense, restless, nervous, or anxious, or unable to sleep at night because yourmind is troubled all the time - these days?Only a beonhh4004/05/2024Exercise Vital SignAnswerDate Recorded On average, how many [...] steady place to sleep or slept in [facility] (including now)?No11/26/2022Housing Stability Vital SignAnswerDate RecordedIn the last 12 months, was there a time when you were not able to pay the mortgage or rent on time?No04/05/2024In the past 12 months, how many times have you moved where you were living? At any time in the past 12 months, were you homeless or living in a prison (including now)?No04/05/2024Sex and Gender InformationValueDate RecordedSex Assigned at BirthNot on fileLegal XseGgxe8108/07/2022 7:37 PM EDTGender Identity Male08/07/2022 7:37 PM EDTSexual OrientationNot on file Last Filed Vital Signs Vital SignReadingTime TakenCommentsBlood Nmdytpze279/6404/13/2025 9:59 AM EST Whhhd098804/13/2025 9:59 AM QZOVdravqhtpxz11.4 ??C (99.3 ??F)06/28/2024 9:08 AM ESTRespiratory Pxzr0770/ 9:59 AM ESTOxygen Fxdymxqcsq78%04/13/2025 9:59 AM ESTInhaled Oxygen Concentration--Ojuixs356 kg (222 lb 6.4 oz)04/13/2025 9:59 AM BUEUrnpnh404.4 cm (5' 10.25 )04/13/2025 9:59 AM ESTBody Mass Index31.68 04/13/2025 9:59 AM EST Plan of Treatment DateTypeDepartmentCare Team (Latest Contact Info)Zuoizrwwhst40/20/2026 10:20 AM EDTOffice Visit [facility] [address] [place] [phone] Helen Cagle MD [address] [place] [address] 03/14/2026 10:00 AM EDTOffice Visit [facility] [address] [place] [address] Angeline Brennan APRN-SUTURE GAUGER [address] [place] [address] Health MaintenanceDue DateLast DoneCommentsMedicare Annual Wellness (AWV) 6106/13/2024, 04/12/2024, 04/04/2023, Additional history exists Pneumococcal Vaccine: 65+ WfulsLtizlihbt74/10/2015, 12/26/2014, 06/20/2010, Additional history existsCOVID-19 BdnwqhzCcvaomgmlupr64/05/2024, 03/26/2022, 03/26/2022, Additional history existsInfluenza QyybmgyQtrjisnio00/18/2025, 01/28/2024, 01/30/2023, Additional history exists Procedures Procedure NamePriorityDate/TimeAssociated DiagnosisCommentsHEMOGLOBIN V2CQqbjoii 04/13/2025 11:23 AM EST Hyperglycemia COMPREHENSIVE METABOLIC AXPVYQuivnji95/19/2025 11:23 AM EST Chronic atrial fibrillation (HCC) CBC (INCLUDES DIFF/PLT)Lcgfwuj0904/13/2025 11:23 AM EST Chronic atrial fibrillation (HCC) CRYOTHERAPY SKIN YBWZVBXgmnmzr29/21/2025 9:14 AM EDT Inflamed seborrheic keratosis COMPREHENSIVE METABOLIC YISHQLcpeaxs83/28/2025 10:47 AM EDT Iron deficiency anemia due to chronic blood loss Gastrointestinal hemorrhage, unspecified gastrointestinal hemorrhage type CBC (INCLUDES DIFF/PLT)Uxkdsnn6701/20/2025 10:47 AM EDT Iron deficiency anemia due to chronic blood loss Gastrointestinal hemorrhage, unspecified gastrointestinal hemorrhage type from Last 3 Months Results * CBC and differential (04/13/2025 11:23 AM EST) Only the most recent of2 resultswithin the time period is included. ComponentValueRef RangeTest MethodAnalysis TimePerformed AtPathologist Signature WHITE BLOOD CELL COUNT5.73.8 - 10.8 Thousand/uLQUESTRED BLOOD CELL COUNT4.314.20 - 5.80 Million/gKGDMYNAPVIRYUYLI67.513.2 - 17.1 g/aVRONBSYTIIHHHIIJ77.338.5 - 50.0 %RWBOYAJA30.880.0 - 100.0 cIXUIQKULA71.327.0 - 33.0 moWIEQJGAUN05.732.0 - 36.0 g/dLQUESTComment: For adults, a slight decrease in the calculated MCHC value (in the range of 30 to 32 g/dL) is most likely not clinically significant; however, it should be interpreted with caution in correlation with other red cell parameters and the patient's clinical condition. RDW11.711.0 - 15.0 %QUESTPLATELET DPQCK294297 - 400 Thousand/bBRWDPXSXH63.57.5 - 12.5 fLQUESTABSOLUTE NEUTROPHILS3,4141,500 - 7,800 cells/uLQUESTABSOLUTE LYMPHOCYTES1,054896 - 3,900 cells/uLQUESTABSOLUTE UGIHKCCJF748487 - 950 cells/uL QUESTABSOLUTE KKQYXSAUYLY83920 - 500 cells/uLQUESTABSOLUTE WLMYTNRTH339 - 200 cells/aWZRTJQBOWABCMZZLW98.9%AFPFQPTUHXSXPHKU04.4%MJBYHSBMUCEBKP90.3%QUEST EOSINOPHILS3.7%QUESTBASOPHILS0.7%QUESTSpecimen (Source)Anatomical Location / LateralityCollection Method / VolumeCollection TimeReceived TimeBloodVenous blood specimen / Tupbsmn8904/13/2025 11:23 AM EST04/13/2025 11:23 AM EST Narrative Resulting Agency Comment Performing Organization Information ?Site ID: QPT ?Name: [facility] ?Address: [address] [place] [address], [address] [place] [phone] ?Director: Cruz Bashir MD Authorizing ProviderResult TypeResult StatusHelen PATINO BLOOD ORDERABLES Final ResultPerforming OrganizationAddressCity/State/ZIP CodePhone Number [facility] * (ABNORMAL) Hemoglobin A1c (04/13/2025 11:23 AM EST)ComponentValueRef RangeTest MethodAnalysis TimePerformed AtPathologist SignatureHemoglobin A1C5.9(H)<5.7 % QUESTComment: For someone without known diabetes, a hemoglobin [...] Volume Collection TimeReceived TimeBloodVenous blood specimen / Jnbqisf6504/13/2025 11:23 AM EST04/13/2025 11:23 AM EST Narrative Resulting Agency Comment Performing Organization Information ?Site ID: QPT ?Name: [facility] ?Address: [address] [place] [address], [address] [place] [phone] ?Director: Cruz Bashir MD Authorizing ProviderResult TypeResult StatusHelen PATINO BLOOD ORDERABLES Final ResultPerforming OrganizationAddressCity/State/ZIP CodePhone Number [facility] * Comprehensive metabolic panel (04/13/2025 11:23 AM EST) Only the most recent of2 resultswithin the time period is included. ComponentValueRef RangeTest MethodAnalysis TimePerformed AtPathologist Signature Nmlwgfc1220 - 99 mg/dLQUESTComment: ? Fasting reference interval VFG273 - 25 mg/dLQUESTCreatinine1.030.70 - 1.22 mg/wPIESWRRXAT49> OR = 60 mL/min/1.67s9OEEAGXRN/CREATININE RATIOSEE NOTE: (calc)QUESTComment: ?? Not Reported: BUN and Creatinine are within ?? reference range. ? Xrzpuu750374 - 146 mmol/LQUESTPotassium, Bld4.13.5 - 5.3 mmol/HIBWBABsulmetm339 98 - 110 mmol/LQUESTCarbon Wrysqkc1699 - 32 mmol/LQUESTCalcium9.18.6 - 10.3 mg/dLQUESTPROTEIN, TOTAL7.46.1 - 8.1 g/dLQUESTALBUMIN4.43.6 - 5.1 g/dLQUEST GLOBULIN3.01.9 - 3.7 g/dL (calc)QUESTALBUMIN/GLOBULIN RATIO1.51.0 - 2.5 (calc) QUESTBILIRUBIN, TOTAL0.70.2 - 1.2 mg/dLQUESTALKALINE LSKBZHYELWR3270 - 144 U/L GIWNYQJX5255 - 35 U/JNFSXCUDW764 - 46 U/LQUESTSpecimen (Source)Anatomical Location / LateralityCollection Method / VolumeCollection TimeReceived TimeBlood Venous blood specimen / Pfpiiaj9504/13/2025 11:23 AM EST04/13/2025 11:23 AM EST Narrative Resulting Agency Comment Performing Organization Information ?Site ID: QPT ?Name: [facility] ?Address: [address] [place] [address], [address] [place] [phone] ?Director: Cruz Bashir MD Authorizing ProviderResult TypeResult StatusHelen Cagle MDLAB BLOOD ORDERABLES Final ResultPerforming OrganizationAddressCity/State/ZIP CodePhone Number [facility]ST * Cryotherapy, skin lesion (03/15/2025 9:14 AM EDT) Narrative Authorizing ProviderResult TypeResult StatusNatreilly Brennan APRN-CNPDERM PROCEDURE ORDERABLESFinal Result from Last 3 Months Insurance * Guarantor: Rhonda Pond Carla TypeRelation to PatientDate of BirthPhone Billing AddressPersonal/JessktGhtn97/27/1936 [address] [address] , [place] [address] Care Teams Team MemberRelationshipSpecialtyStart DateEnd Helen Cagle MD [address] [facility] [place] [address] PCP - ACO [facility]10/17/22 Helen Cagle MD [address] [facility] [place] [address] PCP - GeneralFamily Medicine11/05/22 Farzana Jimenez, RACHELLE [address] [facility] [place] [place] [address] Registered NurseFamily Medicine01/12/25
--- OUTSIDE RECORDS SUMMARY | 2025-04-20 12:27 | XMS_ITS | Encounter Summary ---
Author Organization [facility] Address [address] [place] [address] Care Team Providers Care Bander Name Role Phone Helen Cagle MD Unavailable Helen Cagle MD Primary Care Provider [phone] Frazana Jimenez RN Unavailable [phone] Encounter Details DateTypeDepartmentCare Team (Latest Contact Info)Xjrjglbescr48/19/2025amboo flowsheet [facility] [address] [place] [address] Helen Cagle MD [address] [place], [place] [phone] Social History Tobacco UseTypesPacks/DayYears UsedDateSmoking Tobacco: AqmefsFyhrefqiig019.1 1953 - 11/23/1976PipeCigarsSmokeless Tobacco: NeverAlcohol UseStandard Drinks/WeekCommentsNot Currently2 (1 standard drink = 0.6 oz pure alcohol)social iyxkS6744 Health LiteracyAnswerDate RecordedHow often do you need to have someone help you when you read instructions, pamphlets, or other written material from your doctor or pharmacy?Fpsbix3604/05/2024Humiliation, Afraid, Rape, and Kick questionnaireAnswerDate RecordedWithin the [...] a week 04/05/2024How often do you attend oriental orthodox or yazidi services?More than 4 times per year04/05/2024o you belong to any clubs or organizations such as oriental orthodox groups, unions, fraternal or athletic groups, or school groups?Yes04/05/2024How often do you attend meetings of the clubs or organizations you belong to?More than 4 times per year04/05/2024re you , , , , never , or living with a partner?Oluzzha7504/05/2024UDIT-CAnswerDate RecordedQ1: How often do you have a [...] heating?Not hard at all04/05/2024HQ-2AnswerDate RecordedPatient Health Questionnaire-2 Dmtks54006/06/2024[facility] [place] of Occupational Health - Occupational Stress QuestionnaireAnswerDate RecordedDo you feel stress - tense, restless, nervous, or anxious, or unable to sleep at night because yourmind is troubled all the time - these days?Only a iiyelh5004/05/2024 Exercise Vital SignAnswerDate RecordedOn average, how many [...] steady place to sleep or slept in [place] (including now)?No11/26/2022Housing Stability Vital SignAnswerDate RecordedIn the last 12 months, was there a time when you were not able to pay the mortgage or rent on time?No04/05/2024In the past 12 months, how many times have you moved where you were living?t any time in the past 12 months, were you homeless or living in a detention (including now)?No04/05/2024Sex and Gender InformationValueDate RecordedSex Assigned at BirthNot on fileLegal EkmTeof7308/07/2022 7:37 PM EDTGender SlheirbeIjbb83/15/2023 7:37 PM EDTSexual OrientationNot on filedocumented as of this encounter Plan of Treatment DateTypeDepartmentCare Team (Latest Contact Info)Yiihmpotewb73/20/2026 10:20 AM EDTOffice Visit [facility] [address] [place] [address] Helen Cagle MD [address] [facility] [place] [address] 03/14/2026 10:00 AM EDTOffice Visit [facility] [place] [facility] [address] [place] [address] Angeline Brennan, BARREL ROLLER-BIRD TRAPPER [address] [place] [address] documented as of this encounter Visit Diagnoses Not on filedocumented in this encounter Additional Health Concerns AssessmentNoted TimePHQ-9 Depression Total Score: 5:33 PM EST documented as of this encounter Care Teams Team MemberRelationshipSpecialtyStart DateEnd Date Helen Cagle MD [address] [facility] [place], [place] [address] PCP - ACO [facility]10/17/22 Helen Cagle MD [address] [facility] [place] [address] PCP - GeneralFamily Medicine11/05/22 Farzana Jimenez, RN [address] [facility] [place] [address] Registered NurseFamily Medicine01/12/25documented as of this encounter
--- OUTSIDE RECORDS SUMMARY | 2025-04-20 12:27 | XMS_ITS | Encounter Summary ---
Author Organization [facility] Awesome Maps Sys tem Address [facility] [id number] [address] [place] [address] Care Team Providers Care Lung Splitter Name Role Phone Helen Cagle MD Primary Care Provider [phone] Encounter Details DateTypeDepartmentCare Team (Latest Contact Info)Smwzhioydmc13/19/2025Telephone [facility] [address] [place] [phone] Doreen Blackburn RN Social History Tobacco UseTypesPacks/DayYears UsedDateSmoking Tobacco: FormerPassive Smoke Exposure: PastSmokeless Tobacco: Never Comments:quit in the 70's Alcohol UseStandard Drinks/WeekCommentsYes0 (1 standard drink = 0.6 oz pure alcohol)occasionalChildcareAnswerDate LidnugvwIwuzeirjvUvjzahk67/05/2019 EmploymentAnswerDate BrvmggamJaquwqvtvmMbxsuhm81/05/2019Hunger ScreeningAnswer Date RecordedWithin the past 12 months we worried whether our food would run out before we got money to buy more.Never True03/15/2025Within the past 12 months the food we bought just didn't last and we didn't have money to get more.Never True03/15/2025Purpose - LifeAnswerDate RecordedPurpose and direction in life Hskndnt3107/06/2020ex and Gender InformationValueDate RecordedSex Assigned at BirthNot on fileLegal TrzGxli0512/29/2014 11:28 AM EDTGender IdentityNot on file Sexual OrientationNot on filedocumented as of this encounter Miscellaneous Notes * Telephone Encounter - Doreen Blackburn RN - 04/13/2025 10:28 AM EST Surgeon: Dr lucio Type of surgery: circumcision Date of surgery: 05/05/25 Surgery location: [facility] Type of anesthesia: general On a blood thinner?: eliquis Indication? A-Fib On an antiplatelet?: none Date of last EK01/11/25 Last office visit date and who they saw: 03/18/25 Their preference of how long to hold blood thinners/antiplatelet: 2-3 days History of CVA/TIA, DVT/PE? Not documented Do they need any additional info faxed(such as office note, ekg, testing, Etc?) Pt needs cleared for surgery. Thx slm * Telephone Encounter - Geronimo Martínez MD - 04/13/2025 10:28 AM EST Low risk, hold eliquis 3 days prior to sgy * Telephone Encounter - Doreen Blackburn RN - 04/13/2025 10:28 AM EST Faxed clearance letter to Dr lucio [phone].slm documented in this encounter Plan of Treatment Not on file documented as of this encounter Goals GoalPatient Goal TypeAssociated ProblemsRecent ProgressPatient-Stated?Author Return to [place] at [facility] Ayaka Arteaga RN Note: Evaluation of progress towards goal: Patient and his reside at [facility] together in a two bedroom apartment. documented as of this encounter Visit Diagnoses Not on filedocumented in this encounter Additional Health Concerns AssessmentNoted TimePHQ-9 Depression Total Score: 8:00 AM EDT documented as of this encounter Care Teams Team MemberRelationshipSpecialtyStart DateEnd Date Helen Cagle MD PCP - GeneralFamily Medicine11/30/22documented as of this encounter
--- OUTSIDE RECORDS SUMMARY | 2025-04-20 12:27 | XMS_ITS | Clinical Summary ---
Author Organization [employer] Address [facility] [id number] [address] [place] [address] Care Team Providers Care Duplicator Punch Operator Name Role Phone Helen Cagle MD Primary Care Provider [phone] Allergies Active AllergyReactionsCriticalityNoted DateCommentsAzithromycinShortness Of Breath,DmrbwxbaPxti48/24/2014 Other reaction(s): Asthma SWELLING OF THROAT AND TONGUE Medications MedicationSigDispense QuantityRefillsLast FilledStart DateEnd DateStatus citalopram (CeleXA) 20 mg tablet Take 1 tablet (20 mg total) by mouth once daily at bedtime for 180 days. 90 tablet Active finasteride (PROSCAR) 5 mg tablet Take 1 tablet (5 mg total) by mouth daily for 180 days. 90 tablet Active furosemide (LASIX) 20 mg tablet Take 1 tablet (20 mg total) by mouth daily for 180 days. Take in am 90 tablet Active levothyroxine (SYNTHROID, LEVOTHROID) 50 MCG tablet Take 1 tablet (50 mcg total) by mouth daily for 180 days. 90 tablet Active simvastatin (ZOCOR) 20 mg tablet Take 1 tablet (20 mg total) by mouth once daily at bedtime for 180 days. 90 tablet Active terazosin (HYTRIN) 5 mg capsule Take 1 capsule (5 mg total) by mouth nightly for 180 days. 90 capsule Active timolol (TIMOPTIC) 0.25 % ophthalmic solution Administer 1 drop to both eyes in the morning and 1 drop before bedtime.Active multivitamin capsule Take 1 capsule by mouth in the morning.Active omega 6-emy-crf-fish oil 300-1,000 mg capsule Take 1,000 mg by mouth in the morning and 1,000 mg before bedtime.Active loratadine (CLARITIN) 10 mg tablet Take 1 tablet (10 mg total) by mouth in the morning.Active losartan (COZAAR) 25 mg tablet Take 1 tablet (25 mg total) by mouth in the morning. 90 tablet 3Active apixaban (ELIQUIS) 5 mg tablet Indications:Atrial fibrillation, unspecified type (CMS-HCC)Take 1 tablet (5 mg total) by mouth in the morning and 1 tablet (5 mg total) before bedtime. 180 tablet 5Active amLODIPine (NORVASC) 5 mg tablet Take 1 tablet (5 mg total) by mouth in the morning for 360 days.01/13/2025 01/08/2026ctive albuterol (PROVENTIL HFA;VENTOLIN HFA) 90 mcg/actuation inhaler Inhale 2 puffs every 4 (four) hours as needed.ctive Active Problems ProblemNoted DateDiagnosed DateOther umobcjl2310/04/2022Rectal gibvqzfn63/11/2022 Acquired qbdzdqzmuxzoiw43/11/1680Ajlttcm45/11/2022enign prostatic hyperplasia without urinary kcpfhsyfkrb82/11/2022ervical disc krzoizpk46/11/2022hronic fatigue btdphuqu34/11/2022hronic pain03/05/2022Glaucoma of both eyes03/05/2022 Liver kejpyod0503/05/20226141Tsrzlvjfcyidlhg36/11/0075Zzcdisda39/11/2022Primary open angle glaucoma (POAG) of both eyes, mild stage03/05/2022enign essential lphtyummzynk20/30/1557Svbjlitnfxjggu68/30/2015Paroxysmal atrial fibrillation DiverticulosisGlaucomaSOB (shortness of breath) Resolved Problems ProblemNoted DateDiagnosed DateResolved DateBloody stool/ Encounters DateTypeDepartmentCare MrfxPhmhdblojks60/19/2025Telephone [facility] [address] [place] [phone] Doreen Blackburn RN 03/15/2025 3:00 PM EDTOffice Visit [facility] [address] [place] [address] Geronimo Martínez MD Paroxysmal atrial fibrillation (CMS-HCC) (Primary Dx); Benign essential tjjbtljsczhy16/19/9195Xuegnk63/15/2561Xfjzvv85/04/2025Telephone [facility] Surgery [address] [place] [phone] Vicenta Gayle CMA from Last 3 Months Family History Medical HistoryRelationNameCommentsCancerBrotherHeart attackFatherLupusMother RelationNameStatusCommentsBrotherFatherDeceasedMotherDeceased Social History Tobacco UseTypesPacks/DayYears UsedDateSmoking Tobacco: FormerPassive Smoke Exposure: PastSmokeless Tobacco: Never Tobacco Cessation:Counseling Given: Not Answered Comments:quit in the 70's Alcohol UseStandard Drinks/WeekCommentsYes0 (1 standard drink = 0.6 oz pure alcohol)occasionalChildcareAnswerDate TsbjdkmrUxzpoexrcFnwkdbs19/05/2019 EmploymentAnswerDate IjzmmqtgZqwvykkomjKcwwzow32/05/2019Hunger ScreeningAnswer Date RecordedWithin the past 12 months we worried whether our food would run out before we got money to buy more.Never True03/15/2025Within the past 12 months the food we bought just didn't last and we didn't have money to get more.Never True03/15/2025Purpose - LifeAnswerDate RecordedPurpose and direction in life Qiesfgc5107/06/2020ex and Gender InformationValueDate RecordedSex Assigned at BirthNot on fileLegal VqcWtyw2212/29/2014 11:28 AM EDTGender IdentityNot on file Sexual OrientationNot on file Last Filed Vital Signs Vital SignReadingTime TakenCommentsBlood Swnexdjr811/6610 2:58 PM EDT Oxrov756703/15/2025 2:58 PM NPZBfdxlfyrvwy50.2 ??C (97.1 ??F)01/13/2025 12:20 PM EDTRespiratory Yjtr113901/13/2025 12:39 PM EDTOxygen Arjlyegjve26%03/15/2025 2:58 PM EDTInhaled Oxygen Concentration--Xwcacw174.1 kg (225 lb)03/15/2025 2:58 PM ISSAjdcrj663.8 cm (5' 10 )03/15/2025 2:58 PM EDTBody Mass Index32.281 2:58 PM EDT Plan of Treatment Health MaintenanceDue DateLast DoneCommentsDepression Momnrsdjl97/27/1949Fall Risk Xtzzmhhwq14/27/2002COVID-19 Vaccine ( season)2025 02/17/2025, 01/29/2024, 03/26/2022, Additional history existsDTaP,Tdap and Td Vaccines (3 - Td or Tdap), 11/24/2015, 02/19/2000Tobacco Brcjwczjr49Zoster (Shingles) BvnbzleOcopjzxwu77/04/2021, 10/25/2020, 10/24/2020, Additional history existsRSV ( or age 60+ yrs) Lumczizbh34/05/2024Influenza RvwoyrwIfkavmvdj19/18/2025, 01/28/2024, 01/30/2023, Additional history exists Goals GoalPatient Goal TypeAssociated ProblemsRecent ProgressPatient-Stated?[facility] Note: Evaluation of progress towards goal: Patient and his reside at [facility] together in a two bedroom apartment. Medical Devices Not on file Procedures Procedure NamePriorityDate/TimeAssociated DiagnosisCommentsDNR PHYSICIAN ORDER REPORT (SCANNED INTO EHR)01/28/2025 8:29 AM EDT from Last 3 Months Results * DNR Physician Order Report (Scanned Into EHR) (01/28/2025 8:29 AM EDT) Narrative 01/28/2025 8:29 AM EDT Ordered by an unspecified provider. Authorizing ProviderResult TypeResult StatusNot In System Ref ProvOUTPATIENT REFERRAL ORDERABLESFinal Result from Last 3 Months Insurance * Guarantor: Rhonda PondWilliamcoshiraz TypeRelation to PatientDate of PhoneBilling AddressPersonal/WmaenlQzmm70/27/1936 [address] [address] Advance Directives TypeDate RecordedPatient RepresentativeExplanationDNR Physician Order01/28/2025 8:29 AMDNR Physician Order05/16/2022 3:54 PMLiving Will03/19/2022 10:28 AM Durable Power of Gpuqvbfy96/25/2022 10:07 AM * Full Code (Latest Code Status on File) Date ActivatedDate InactivatedComments01/11/2025 11:20 AM01/13/2025 6:07 PM * DNR Comfort Care Arrest (DNR-CCA) [place] ActivatedDate PkipehbrwepBxtyyfkh27/11/2022 3:12 AM03/06/2022 3:41 PM Care Teams Team MemberRelationshipSpecialtyStart DateEnd Date Helen Cagle MD [facility]11/30/22
[2025-04-20 13:28] LABS: Hematocrit 39.7 % (42.0-54.0); Hemoglobin 13.0 g/dL (14.0-18.0); Immature Granulocytes Abs Auto 0.02 10^3/uL (0.00-0.03); Immature Granulocytes Pct Auto 0.4 % (0.0-0.5); Lymphocytes Absolute Auto 1.5 10^3/uL (1.2-3.8); Mean Corpuscular HGB Conc 32.7 g/dL (29.9-35.2); Mean Corpuscular Hemoglobin 31.3 pg (25.9-34.0); Mean Corpuscular Volume 95.4 fL (80.0-94.0); Platelet Count 189 10^3/uL (150-450); Red Blood Count 4.16 10^6/uL (4.70-6.10); White Blood Count 5.5 10^3/uL (4.0-11.0)
[2025-04-20 13:48] LABS: INR 1.06; Partial Thromboplastin Time 28.8 sec (22.3-36.2); Prothrombin Time 11.2 sec (9.0-11.6)
[2025-04-20 13:52] LABS: Alanine Aminotransferase 16 U/L (16-63); Albumin Globulin Ratio 0.9; Albumin Level 3.6 g/dL (3.4-5.0); Alkaline Phosphatase 67 U/L (46-116); Anion Gap 9.2; Aspartate Amino Transferase 20 U/L (15-37); Blood Urea Nitrogen 25.0 mg/dL (7.0-18.0); Calcium 8.9 mg/dL (8.5-10.1); Carbon Dioxide 32.9 mmol/L (21.0-32.0); Chloride 102 mmol/L (98-107); Estimated GFR (African America >60 (>=60 mL/min/1.73m^2); Estimated GFR (Non-African Ame >60 (>=60 mL/min/1.73m^2); Globulin 4.0 g/dL; Glucose 124 mg/dL (74-106); Potassium 4.1 mmol/L (3.5-5.1); Sodium 140 mmol/L (136-145); Total Protein 7.6 g/dL (6.4-8.2)
== END 2025-04-20 12:23 | disposition home or self-care (01) ==
LOC: PST 12:24
PROVIDERS: PCP Family Medicine; Visit Provider Urology
DX: Z01.812 Encounter for preprocedural laboratory examination (principal); N47.1 Phimosis; F41.9 Anxiety disorder, unspecified; E03.9 Hypothyroidism, unspecified; E78.5 Hyperlipidemia, unspecified; I10 Essential (primary) hypertension; I48.91 Unspecified atrial fibrillation; Z79.01 Long term (current) use of anticoagulants
CPT/HCPCS: 36415; 80053; 80076; 85025; 85610; 85730

== ENCOUNTER 2025-05-17 08:32 | Day surgery (SDC) | payer MEDICARE, OTHER, SELFPAY ==
[2025-04-20 13:10] VITALS: BP 148/72; PULSE 54; TEMP 36.3; O2SAT 96; BMI 32.4
--- OUTSIDE RECORDS SUMMARY | 2025-05-12 15:20 | XMS_ITS | Encounter Summary ---
Author Organization [facility] Address [address] [place] [address] Care Team Providers Care Concrete Form Setter And Finisher Name Role Phone Helen Cagle MD Unavailable Helen Cagle MD Primary Care Provider [phone] Farzana Jimenez RN Unavailable [phone] Reason for Visit * ReasonCommentsFollow-up Encounter Details DateTypeDepartmentCare Team (Latest Contact Info)Dyvjdkfgurb41/18/2025 3:20 PM ESTOffice Visit [facility] [address] [place] [phone] Angeline Brennan, HARLAN-SANDOR [address] [place] [address] Neoplasm of unspecified behavior of bone, soft tissue, and skin (Primary Dx); Abscess; Impetigo Social History Tobacco UseTypesPacks/DayYears UsedDateSmoking Tobacco: RlidnwVqvkkeoary555.1 1952 - [birth year]23/1975PipeCigarsSmokeless Tobacco: NeverAlcohol UseStandard Drinks/WeekCommentsNot Currently2 (1 standard drink = 0.6 oz pure alcohol)social svgfZ2552 Health LiteracyAnswerDate RecordedHow often do you need to have someone help you when you read instructions, pamphlets, or other written material from your doctor or pharmacy?Motnql1804/05/2024Humiliation, Afraid, Rape, and Kick questionnaireAnswerDate RecordedWithin the [...] a week 04/05/2024How often do you attend druze or mosque services?More than 4 times per year4Do you belong to any clubs or organizations such as druze groups, unions, fraternal or athletic groups, or school groups?Yes04/05/2024How often do you attend meetings of the clubs or organizations you belong to?More than 4 times per year04/05/2024re you , , , , never , or living with a partner?Mqukmuu0004/05/2024UDIT-CAnswerDate RecordedQ1: How often do you have a [...] heating?Not hard at all04/05/2024HQ-2AnswerDate RecordedPatient Health Questionnaire-2 Cxozd57406/06/2024[place] [facility] [place] of Occupational Health - Occupational Stress QuestionnaireAnswerDate RecordedDo you feel stress - tense, restless, nervous, or anxious, or unable to sleep at night because yourmind is troubled all the time - these days?Only a mfoagc9504/05/2024 Exercise Vital SignAnswerDate RecordedOn average, how many [...] steady place to sleep or slept in [facility] (including now)?No11/26/2022Housing Stability Vital SignAnswerDate RecordedIn the last 12 months, was there a time when you were not able to pay the mortgage or rent on time?No04/05/2024In the past 12 months, how many times have you moved where you were living?t any time in the past 12 months, were you homeless or living in a senior living (including now)?No04/05/2024Sex and Gender InformationValueDate RecordedSex Assigned at BirthNot on fileLegal MfvEzke0208/07/2022 7:37 PM EDTGender OomunjddViuo68/15/2023 7:37 PM EDTSexual OrientationNot on filedocumented as of this encounter Progress Notes * Angeline Brennan, HAND BOOKED FOLDER AND STITCHER-BEDSPREAD INSPECTOR - 05/12/2025 3:20 PM EST Images from the original note were not included. Follow up Diagnosis: Inflamed seborrheic keratosis Location: left flank Last visit: 1 month ago Symptoms: red and itchy at times, seeps Status: still some there Procedure performed: Cryotherapy Date of procedure: 03/15/2025 Number of treatments to date: 1 Current Treatment: Neosporin cream All pertinent medical history, medications, and allergies were reviewed. General Exam: alert, oriented to person, place, and time, normal affect, well appearing Unaccompanied A focused exam completed based on patient reported problems, see below: Skin Exam 1. NEOPLASM OF UNSPECIFIED BEHAVIOR OF BONE, SOFT TISSUE, AND SKIN Left Flank Milam papule - Lesion biopsy Type of biopsy: tangential Informed consent: discussed and consent obtained Informed consent comment: The risks and benefits of the biopsy were discussed. Risks include but are not limited to bleeding, infection, scarring, pain, and nerve damage. An opportunity to ask questions prior to the procedure was permitted and all questions were answered. Patient was prepped and draped in usual sterile fashion: area cleansed with alcohol. Anesthesia: the lesion was anesthetized in a standard fashion Anesthetic: 1% lidocaine w/ epinephrine 1-100,000 buffered w/ 8.4% NaHCO3 Instrument used: DermaBlade Hemostasis achieved with: electrodesiccation Outcome: patient tolerated procedure well Outcome comment: The specimen was placed in a prelabeled formalin container to be sent for pathology Post-procedure details: sterile dressing applied and wound care instructions given Post-procedure details comment: Emphasized need to contact clinic for any signs of infection, uncontrollable bleeding, or complications. Dressing type: bandage Additional details: Photo taken Amount of lidocaine used: 1 cc Specimen A - Dermatopathology exam Differential Diagnosis: PG vs vs mm vs ISK vs other Check Margins: No Size of lesion: 2.0 x 1.1 cm 2. ABSCESS 3. IMPETIGO Left Flank Erythematous patch Culture today as precaution for upcoming surgery. Do not suspect infection, start Gentamicin ointment twice daily with wound care. - gentamicin (Garamycin) 0.1 % ointment - Left Flank - Apply daily - Bacteria identification, aerobic - Left Flank Specimen 1 - Aerobic culture Account Name: [facility] NPI: Angeline Brennan [id number] Next Visit: as scheduled documented in this encounter Plan of Treatment DateTypeDepartmentCare Team (Latest Contact Info)Bjrtlbqtqkf00/20/2026 10:20 AM EDTOffice Visit [facility] [address] [place] [address] Helen Cagle MD [address] [place], [place] [phone] 03/14/2026 10:00 AM EDTOffice Visit [facility] [address] [place] [phone] Angeline Brennan APRN-CNP [address] [place] [address] NameTypePriorityAssociated DiagnosesOrder ScheduleDermatopathology examPathology and CytologyTimed Neoplasm of unspecified behavior of bone, soft tissue, and skin Release Upon Ordering for 1 Occurrences starting 5Aerobic culture MicrobiologyTimed Impetigo Release Upon Ordering for 1 Occurrences starting 5Bacteria identification, aerobicMicrobiologyRoutine Impetigo Expected: 05/12/2025 (Approximate), Expires: 05/12/2026documented as of this encounter Procedures Procedure NamePriorityDate/TimeAssociated DiagnosisCommentsSKIN / NAIL BIOPSY Gkhwxsr6005/12/2025 3:08 PM EST Neoplasm of unspecified behavior of bone, soft tissue, and skin documented in this encounter Results * Lesion biopsy (05/12/2025 3:08 PM EST) Narrative Benigno Reyes LPN - 05/12/2025 3:08 PM EST Type of biopsy: tangential Informed consent: discussed and consent obtained ?? Informed consent comment: ??The risks and benefits of the biopsy were discussed. Risks include but are not limited to bleeding, infection, scarring, pain, and nerve damage. An opportunity to ask questions prior to the procedure was permitted and all questions were answered. Patient was prepped and draped in usual sterile fashion: area cleansed with alcohol. Anesthesia: the lesion was anesthetized in a standard fashion ?? Anesthetic: ??1% lidocaine w/ epinephrine 1-100,000 buffered w/ 8.4% NaHCO3 Instrument used: DermaBlade ?? Hemostasis achieved with: electrodesiccation ?? Outcome: patient tolerated procedure well ?? Outcome comment: ??The specimen was placed in a prelabeled formalin container to be sent for pathology Post-procedure details: sterile dressing applied and wound care instructions given ?? Post-procedure details comment: ??Emphasized need to contact clinic for any signs of infection, uncontrollable bleeding, or complications. Dressing type: bandage ?? Additional details: ??Photo taken Amount of lidocaine used: 1 cc Authorizing ProviderResult TypeResult StatusNatalie Vickie Brennan HAND BOOKED FOLDER AND STITCHER-CNPDERM PROCEDURE ORDERABLESFinal Result documented in this encounter Visit Diagnoses Diagnosis Neoplasm of unspecified behavior of bone, soft tissue, and skin- Primary Abscess Cellulitis and abscess of unspecified site Impetigo documented in this encounter Additional Health Concerns AssessmentNoted TimePHQ-9 Depression Total Score: 5:33 PM EST documented as of this encounter Care Teams Team MemberRelationshipSpecialtyStart DateEnd Date Helen Cagle MD [address] [place] [address] PCP - ACO [place]10/17/22 Helen Cagle MD [address] [place] [address] PCP - GeneralFamily Medicine11/05/22 Farzana Jimenez, RACHELLE [address] [place] [address] Registered NurseFamily Medicine01/12/25documented as of this encounter
[2025-05-17] VITALS (11 sets, daily range): BP systolic 109–138; BP diastolic 65–84; PULSE 53–77; TEMP 35.9–36.8; O2SAT 91–97; BMI 32.3
--- OUTSIDE RECORDS SUMMARY | 2025-05-17 08:36 | XMS_ITS | Encounter Summary ---
Author Organization [facility] Address [address] [place] [address] Care Team Providers Care Heavy Equipment Supervisor Name Role Phone Helen Cagle MD Unavailable Helen Cagle MD Primary Care Provider [phone] Farzana Jimenez RN Unavailable [phone] Encounter Details DateTypeDepartmentCare Team (Latest Contact Info)Fzcjtmteaoo91/16/2025Travel Social History Tobacco UseTypesPacks/DayYears UsedDateSmoking Tobacco: BpcqtxSlsxcrbrps350.1 1952 - 11/23/1975PipeCigarsSmokeless Tobacco: NeverAlcohol UseStandard Drinks/WeekCommentsNot Currently2 (1 standard drink = 0.6 oz pure alcohol)social isifW1961 Health LiteracyAnswerDate RecordedHow often do you need to have someone help you when you read instructions, pamphlets, or other written material from your doctor or pharmacy?Aeevyo6504/05/2024Humiliation, Afraid, Rape, and Kick questionnaireAnswerDate RecordedWithin the [...] a week 04/05/2024How often do you attend uatsdin or congregation services?More than 4 times per year04/05/2024o you belong to any clubs or organizations such as uatsdin groups, unions, fraApica or athletic groups, or school groups?Yes04/05/2024How often do you attend meetings of the clubs or organizations you belong to?More than 4 times per year04/05/2024re you , , , , never , or living with a partner?Dzfjzxp0804/05/2024UDIT-CAnswerDate RecordedQ1: How often do you have a [...] heating?Not hard at all04/05/2024HQ-2AnswerDate RecordedPatient Health Questionnaire-2 Cbfju50706/06/2024[facility] [place] of Occupational Health - Occupational Stress QuestionnaireAnswerDate RecordedDo you feel stress - tense, restless, nervous, or anxious, or unable to sleep at night because yourmind is troubled all the time - these days?Only a trvxfc4904/05/2024 Exercise Vital SignAnswerDate RecordedOn average, how many [...] steady place to sleep or slept in [facility] (including now)?No11/26/2022Housing Stability Vital SignAnswerDate RecordedIn the last 12 months, was there a time when you were not able to pay the mortgage or rent on time?No04/05/2024In the past 12 months, how many times have you moved where you were living?t any time in the past 12 months, were you homeless or living in a senior care (including now)?No04/05/2024Sex and Gender InformationValueDate RecordedSex Assigned at BirthNot on fileLegal ApyZhau7508/07/2022 7:37 PM EDTGender StakevfeGeca73/15/2023 7:37 PM EDTSexual OrientationNot on filedocumented as of this encounter Plan of Treatment DateTypeDepartmentCare Team (Latest Contact Info)Tqaemihyyrc17/20/2026 10:20 AM EDTOffice Visit [facility] [address] [facility] [address] [facility] [place] [phone] Helen Cagle MD [address] [place], [place] [phone] 03/14/2026 10:00 AM EDTOffice Visit [facility] [address] [place] [phone] Angeline Brennan APRN-CUSTOMER SERVICE REPRESENTATIVE [address] [place] [address] documented as of this encounter Visit Diagnoses Not on filedocumented in this encounter Additional Health Concerns AssessmentNoted TimePHQ-9 Depression Total Score: 5:33 PM EST documented as of this encounter Care Teams Team MemberRelationshipSpecialtyStart DateEnd Date Helen Cagle MD [address] [place], [place] [phone] PCP - [facility]CO [facility]10/17/22 Helen Cagle MD [address] [facility] [place] [address] PCP - GeneralFamily Medicine11/05/22 Farzana Jimenez, RACHELLE [address] [place] [address] Registered NurseFamily Medicine01/12/25documented as of this encounter
--- OUTSIDE RECORDS SUMMARY | 2025-05-17 08:36 | XMS_ITS | Clinical Summary ---
Author Organization [employer] Address [id number] [address] [place] [address] Care Team Providers Care Cyber Security Systems Engineer Name Role Phone Helen Cagle MD Primary Care Provider [phone] Allergies Active AllergyReactionsCriticalityNoted DateCommentsAzithromycinShortness Of Breath,DlwxvjbuTxdn76/24/2014 Other reaction(s): Asthma SWELLING OF THROAT AND [...] capsule by mouth in the morning.Active omega 9-llr-emq-fish oil 300-1,000 mg capsule Take 1,000 mg [...] as needed.ctive Active Problems ProblemNoted DateDiagnosed DateOther xrbmlfn3810/04/2022Rectal vbqkaepm33/11/2022 Acquired pdknsoappbpxng20/11/4061Sevhtcq30/11/2022enign prostatic hyperplasia without urinary cbgxxjrouip30/11/2022ervical disc tujvotjh36/11/2022hronic fatigue hwsrikgz43/11/2022hronic pain03/05/2022Glaucoma of both eyes03/05/2022 Liver ogqxnqn5803/05/20224560Xbkgtnhwwfnltuo35/11/9030Xjcgacdi54/11/2022Primary open angle glaucoma (POAG) of both eyes, mild stage03/05/2022enign essential efonxcftriwm97/30/6033Yjfmpmgjhhyfqo19/30/2015Paroxysmal atrial fibrillation DiverticulosisGlaucomaSOB (shortness of breath) Resolved Problems ProblemNoted DateDiagnosed DateResolved DateBloody stool/ Encounters DateTypeDepartmentCare ArrdYqfxggoaedh77/19/2025Telephone [facility] [address] [place] [address] Doreen Blackburn RN 03/15/2025 3:00 PM EDTOffice Visit [facility] [address] [place] [address] Geronimo Martínez MD Paroxysmal atrial fibrillation (CMS-HCC) (Primary Dx); Benign essential kucbrtttbank93/19/2025Travelfrom Last 3 Months Family History Medical HistoryRelationNameCommentsCancerBrotherHeart attackFatherLupusMother RelationNameStatusCommentsBrotherFatherDeceasedMotherDeceased Social History Tobacco UseTypesPacks/DayYears UsedDateSmoking Tobacco: FormerPassive Smoke Exposure: PastSmokeless Tobacco: Never Tobacco Cessation:Counseling Given: Not Answered Comments:quit in the 70's Alcohol UseStandard Drinks/WeekCommentsYes0 (1 standard drink = 0.6 oz pure alcohol)occasionalChildcareAnswerDate DmxpipwtGeeohfqjrNhqgeii10/05/2019 EmploymentAnswerDate PhhcivedVsqfsoivtsSuywkdw59/05/2019Hunger ScreeningAnswer Date RecordedWithin the past 12 months we worried whether our food would run out before we got money to buy more.Never True03/15/2025Within the past 12 months the food we bought just didn't last and we didn't have money to get more.Never True03/15/2025Purpose - LifeAnswerDate RecordedPurpose and direction in life Epjiham3307/06/2020ex and Gender InformationValueDate RecordedSex Assigned at BirthNot on fileLegal YigThjs7812/29/2014 11:28 AM EDTGender IdentityNot on file Sexual OrientationNot on file Last Filed Vital Signs Vital SignReadingTime TakenCommentsBlood Unaopgco501/6603/15/2025 2:58 PM EDT Pjfgp190503/15/2025 2:58 PM BJGQjxtemhtvnb46.2 ??C (97.1 ??F)01/13/2025 12:20 PM EDTRespiratory Qcpi851201/13/2025 12:39 PM EDTOxygen Ibwefolcfd87%03/15/2025 2:58 PM EDTInhaled Oxygen Concentration--Kcrtwc255.1 kg (225 lb)03/15/2025 2:58 PM OGCUujins424.8 cm (5' 10 )03/15/2025 2:58 PM EDTBody Mass Index32.281 2:58 PM EDT Plan of Treatment Health MaintenanceDue DateLast DoneCommentsDepression Mduqxjimg03/27/1949Fall Risk Fkbkoyezm76/27/2002COVID-19 Vaccine ( season)2025 02/17/2025, 01/29/2024, 03/26/2022, Additional history existsDTaP,Tdap and Td Vaccines (3 - Td or Tdap), 11/24/2015, 02/19/2000Tobacco Kiokubhef61Zoster (Shingles) FbpmpavQgzclpkle13/04/2021, 10/25/2020, 10/24/2020, Additional history existsRSV ( or age 60+ yrs) Xeipltvxq70/05/2024Influenza KzdsgtuNxtvjcpqu09/18/2025, 01/28/2024, 01/30/2023, Additional history exists Goals GoalPatient Goal TypeAssociated ProblemsRecent ProgressPatient-Stated?Author [facility] [place] [facility]HELLE Marley Note: Evaluation of progress towards goal: Patient and his reside at [facility] together in a two bedroom apartment. Medical Devices [place] [id number] Advance Directives TypeDate RecordedPatient RepresentativeExplanationDNR Physician Order01/28/2025 8:29 AMDNR Physician Order05/16/2022 3:54 PMLiving Will03/19/2022 10:28 AM Durable Power of Pdwphlgp72/25/2022 10:07 AM * Full Code (Latest Code Status on File) Date ActivatedDate InactivatedComments01/11/2025 11:20 AM01/13/2025 6:07 PM * DNR Comfort Care Arrest (DNR-CCA) [place] Date ActivatedDate JisqekxrdpeBqmgsepo87/11/2022 3:12 AM03/06/2022 3:41 PM Care Teams Team MemberRelationshipSpecialtyStart DateEnd Date Helen Cagle MD PCP - GeneralFamily Medicine11/30/22
--- OUTSIDE RECORDS SUMMARY | 2025-05-17 08:36 | XMS_ITS | Encounter Summary ---
Author Organization [facility] Address [address] [place] [address] Care Team Providers Care Public Speaking Professor Name Role Phone Helen Cagle MD Unavailable Helen Cagle MD Primary Care Provider [phone] Farzana Jimenez RN Unavailable [phone] Encounter Details DateTypeDepartmentCare Team (Latest Contact Info)Sdkeweulyjx56/15/2025Refill [facility] Medicine [address] [place] [address] Helen Cagle MD [address] [place] [address] Acquired hypothyroidism Social History Tobacco UseTypesPacks/DayYears UsedDateSmoking Tobacco: FfugwuUjocfibjgk626.1 1953 - 11/23/1976PipeCigarsSmokeless Tobacco: NeverAlcohol UseStandard Drinks/WeekCommentsNot Currently2 (1 standard drink = 0.6 oz pure alcohol)social pkklK5613 Health LiteracyAnswerDate RecordedHow often do you need to have someone help you when you read instructions, pamphlets, or other written material from your doctor or pharmacy?Bzwlar6604/05/2024Humiliation, Afraid, Rape, and Kick questionnaireAnswerDate RecordedWithin the [...] 04/05/2024How often do you attend uatsdin or scientologist services?More than 4 times per year04/05/2024o you belong to any clubs or organizations such as uatsdin groups, unions, fraternal or athletic groups, or school groups?Yes04/05/2024How often do you attend meetings of the clubs or organizations you belong to?More than 4 times per year04/05/2024re you , , , , never , or living with a partner?Mvvijjt9804/05/2024UDIT-CAnswerDate RecordedQ1: How often do you have a [...] heating?Not hard at all04/05/2024HQ-2AnswerDate RecordedPatient Health Questionnaire-2 Xsyzj38106/06/2024[facility] [place] [facility] - Occupational Stress QuestionnaireAnswerDate RecordedDo you feel stress - tense, restless, nervous, or anxious, or unable to sleep at night because yourmind is troubled all the time - these days?Only a yuxxfx0404/05/2024 Exercise Vital SignAnswerDate RecordedOn average, how many [...] steady place to sleep or slept in [place] (including now)?No11/26/2022Housing Stability Vital SignAnswerDate RecordedIn the last 12 months, was there a time when you were not able to pay the mortgage or rent on time?No04/05/2024In the past 12 months, how many times have you moved where you were living?t any time in the past 12 months, were you homeless or living in a [place] (including now)?No04/05/2024Sex and Gender InformationValueDate RecordedSex Assigned at BirthNot on fileLegal WwoRnbp4208/07/2022 7:37 PM EDTGender LqoyrojxYoxh98/15/2023 7:37 PM EDTSexual OrientationNot on filedocumented as of this encounter Plan of Treatment DateTypeDepartmentCare Team (Latest Contact Info)Aeyzntdafok46/20/2026 10:20 AM EDTOffice Visit [facility] [address] [place] [address] Helen Cagle MD [address] [facility] [place] [address] 03/14/2026 10:00 AM EDTOffice Visit [facility] [place] [facility] [address] [place] [address] Angeline Brennan, JOINT SEALER[employer]ODUCTION [employer] [address] [place] [address] documented as of this encounter Visit Diagnoses Diagnosis Acquired hypothyroidism Unspecified hypothyroidism documented in this encounter Additional Health Concerns AssessmentNoted TimePHQ-9 Depression Total Score: 5:33 PM EST documented as of this encounter Care Teams Team MemberRelationshipSpecialtyStart DateEnd Date Helen Cagle MD [address] [facility] [place], [place] [id number] PCP - ACO Reach10/17/22 Helen Cagle MD [address] [facility] [place], [place] [id number] PCP - GeneralFamily Medicine11/05/22 Farzana Jimenez, RACHELLE [address] [facility] [place] [address] Registered NurseFamily Medicine01/12/25documented as of this encounter
--- OUTSIDE RECORDS SUMMARY | 2025-05-17 08:36 | XMS_ITS | Clinical Summary ---
Author Organization [facility] Address [address] [place] [address] Care Team Providers Care Sheep Boner Name Role Phone Helen Cagle MD Unavailable Helen Cagle MD Primary Care Provider [phone] Farzana Jimenez RN Unavailable [phone] Allergies Active AllergyReactionsCriticalityNoted DateCommentsAzithromycinShortness of breath,Swelling,XshoxYcec71/24/2014 Other reaction(s): Asthma SWELLING OF THROAT AND TONGUE Medications MedicationSigDispense QuantityRefillsLast FilledStart DateEnd DateStatus Multiple Vitamins-Minerals (MULTIVITAMIN ADULT, MINERALS, PO) Take 1 capsule by mouth in the morning.Active omega-3 (Fish Oil) 1000 MG capsule 2 capsules 1 (one) time each day at the same timeActive apixaban (Eliquis) 5 MG tablet every 12 (twelve) hours06/07/2022ctive mometasone (Elocon) 0.1 % cream Active loratadine (Claritin) 10 MG tablet Take 10 mg by mouth in the morning.Active timolol (Timoptic) 0.25 % ophthalmic solution Administer 1 drop into affected eye(s) in the morning and 1 drop in the evening. Active ofloxacin (Floxin) 0.3 % otic solution 05/14/2023ctive albuterol HFA (Ventolin HFA) 90 mcg/act inhaler Indications:Chronic obstructive pulmonary disease, unspecified COPD type (HCC) Inhale 2 puffs every 4 (four) hours if needed for wheezing 18 g 110502/06/2026Active citalopram (CeleXA) 20 MG tablet Indications:AnxietyTAKE 1 TABLET BY MOUTH DAILY 90 tablet 1105Active simvastatin (Zocor) 20 MG tablet Indications:Moderate mixed hyperlipidemia not requiring statin therapyTake 1 tablet (20 mg) by mouth at bedtime 90 tablet [id number]/6Active terazosin (Hytrin) 5 MG capsule Indications:Benign essential hypertensionTAKE 1 CAPSULE BY MOUTH DAILY 90 capsule 1105Active losartan (Cozaar) 25 MG tablet Indications:Primary hypertensionTAKE 1 TABLET BY MOUTH EVERY MORNING 90 tablet 5Active finasteride (Proscar) 5 MG tablet Indications:Elevated prostate specific antigen (PSA),NephrolithiasisTAKE 1 TABLET BY MOUTH DAILY 90 tablet 1105Active furosemide (Lasix) 20 MG tablet Indications:Benign essential hypertensionTAKE 1 TABLET BY MOUTH DAILY 90 tablet 5Active Additional Information Patient taking differently:20 mg Oral Daily,(No times of day reported), Reported on 05/12/2025 amLODIPine (Norvasc) 5 MG tablet Indications:Benign essential hypertensionTAKE 1 TABLET BY MOUTH DAILY 90 tablet 5Active levothyroxine (Synthroid, Levoxyl) 50 MCG tablet Indications:Acquired hypothyroidismTake 1 tablet (50 mcg) by mouth in the morning. Take before meals. 90 tablet 5Active gentamicin (Garamycin) 0.1 % ointment Indications:ImpetigoApply daily 30 g 5Active amLODIPine (Norvasc) 5 MG tablet Indications:Benign essential hypertensionTake 1 tablet (5 mg) by mouth Daily 30 tablet 111Discontinued levothyroxine (Synthroid, Levoxyl) 50 MCG tablet Indications:Acquired hypothyroidismTAKE 1 TABLET BY MOUTH EVERY MORNING BEFORE A MEAL 90 tablet Discontinued(Reorder) Active Problems ProblemNoted DateDiagnosed DateThrombophilia ([facility])09/30/2023 Assessment & Plan (04/17/2025 10:53 AM EST): Elevated prostate specific antigen (PSA)01/30/2023Fitting and adjustment of hearing aid01/30/20232772Xlpohjst83/07/2023 Assessment & Plan (04/17/2025 10:53 AM EST): Managed by optho superintendent container terminal current use of anticoagulant xcmiepr5101/30/2023Other specified jqhrghpuxv54/07/2023Encounter for therapeutic drug rhsfsmxieb78/07/2023 Sensorineural hearing loss, hdmulozcr27/07/2023Sensorineural hearing loss, ifhrulasojzj63/07/2023 Assessment & Plan (04/17/2025 10:53 AM EST): Sciatica of right side12/03/2022hronic atrial xeywmrttarkl25/11/2023 Assessment & Plan (04/17/2025 10:53 AM EST): Orders: CBC and differential; Future Comprehensive metabolic panel; Future Unable to tolerate anticoagulation due to g bleeds Managed by cardiology Morbid czzeuda8112/03/2022 Assessment & Plan (04/17/2025 10:53 AM EST): stable Mixed mirjxaqphhudia68/11/2023 Assessment & Plan (04/17/2025 10:53 AM EST): On statin Hip ofsyalpki96/11/2023 Assessment & Plan (04/17/2025 10:53 AM EST): Qicbfznkndmgne68/11/2023Renal cyst, acquired, right12/03/2022 Overview (12/03/2022): 2.5 cm stable x several years Assessment & Plan (04/17/2025 10:53 AM EST): Primary open angle glaucoma (POAG) of both eyes, mild stage03/05/2022 Assessment & Plan (04/17/2025 10:53 AM EST): Manaed by optho Ociqyislrrtyebc29/11/2022Liver lesion, right lobe03/05/2022 Assessment & Plan (04/17/2025 10:53 AM EST): Chronic fatigue /11/2022ervical disc /11/2022enign prostatic hyperplasia without urinary rlfzuvqnwmv88/11/6134Tvbjgcv23/11/2022 Acquired qwwpbvyhmefeoe78/11/2022 Assessment & Plan (04/17/2025 10:53 AM EST): levothyroxine Chronic pain03/05/2022enign essential xiaogrxniowv31/30/2015 Assessment & Plan (04/17/2025 10:53 AM EST): Stable norvasc terazosin Resolved Problems ProblemNoted DateDiagnosed DateResolved DateBody mass index (BMI) 40.0-44.9, adult/10/2023Iron deficiency anemia due to chronic blood loss / Encounters DateTypeDepartmentCare RxeiFtjvvsvypat50/18/2025 3:20 PM ESTOffice Visit [facility] [address] [place] [phone] Angeline Brennna, FUSION JUNCTURE GRINDER-PRACTICE BILLING ASSOCIATE Neoplasm of unspecified behavior of bone, soft tissue, and skin (Primary Dx); Abscess; Bzcqlxwt50/18/2025amboo flowsheet [facility] [address] [place] [address] Angeline Brennan FUSION JUNCTURE GRINDER-PRACTICE BILLING ASSOCIATE 05/12/20250038Xkoxne97/16/7092Fmmkyk98/15/2025[facility] [place] [address] Helen Cagle MD Acquired doyauommtqneuy72/30/2025Refill [address] [place] [address] Helen Cagle MD Benign essential sjbjcbxdytxw57/26/2025linisync Result Encounter [facility] External Department Unsolicited Provider, Generic External Data 04/19/2025Telephone [address] [place] [address] Helen Cagle MD 04/14/2025Results Follow-Up [address] [phone] Helen Cagle MD CBC and differential, Comprehensive metabolic panel, Hemoglobin A1c04/13/2025 10:20 AM ESTOffice Visit [address] [phone] Helen Cagle MD Chronic atrial fibrillation (HCC) (Primary Dx); Hyperglycemia; Routine general medical examination at a health care facility; Primary open angle glaucoma (POAG) of both eyes, mild stage; Morbid obesity (CMS-HCC); Mixed hyperlipidemia; Arthritis of both hips; Acquired hypothyroidism; Renal cyst, acquired, right; Liver lesion, right lobe; Other specified glaucoma, unspecified laterality; Benign essential hypertension; Thrombophilia ([facility]-HCC); Sensorineural hearing loss, asymmetrical; superintendent container terminal current use of anticoagulant ypjzhuw2504/13/2025amb flowsheet [address] [phone] Helen Cagle MD 04/13/20253068Bbgumy05/12/5923Mlydtm66/31/2025Patient Outreach [address] [place] [address] Farzana Jimenez RN 03/15/2025 9:35 AM EDTOffice Visit [facility] [address] [place] [phone] Angeline Brennan, FUSION JUNCTURE GRINDER-PRACTICE BILLING ASSOCIATE Seborrheic keratosis (Primary Dx); Inflamed seborrheic keratosis; Sebaceous hyperplasia; Lentigines; Capillary tocdlte7903/15/2025amb flowsheet [facility] [address] [place] [phone] Angeline Brennan, FUSION JUNCTURE GRINDER-PRACTICE BILLING ASSOCIATE 03/15/20250860Pnfjle91/15/2025Refill [address] [phone] Helen Cagle MD Benign essential ndrtozzymglk39/14/4391Fsczmo88/26/2025Patient Outreach [facility] [address] [place] [address] Farzana Jimenez RN from Last 3 Months Immunizations ImmunizationAdministration DatesNext DueInfluenza, High Dose Seasonal, Preservative Free01/28/2024,01/30/2023,02/27/2022,02/04/2019,02/07/2018, 01/22/2017,02/26/2016,02/17/2015,02/08/2013Influenza, High-dose Seasonal, Quadrivalent, Preservative Free02/10/2025,02/27/2022,03/06/2020Influenza, Seasonal, Quadrivalent, Tcmpqmohgi93/13/2021Influenza, Itzpasqngni15/01/2022, 02/23/2021,02/23/2019,02/24/2016,02/23/2014,02/23/2013,02/24/2012,02/23/2011, 02/23/2010,03/26/2009,03/26/2008,02/23/2007,02/23/2006,02/23/2005,02/24/2004, 03/26/2003,03/04/2003,02/23/2002,03/26/2001Influenza, injectable, quadrivalent, preservative free02/27/2016Influenza, seasonal, intradermal, preservative free 02/27/2015Moderna Bivalent Booster Sttngzvdtuj03/01/2022Moderna SARS-CoV-2 50mcg/0.5mL Xaudiwt4403/26/2022Novel Pkkdwpvbo-Y1X8-90, all bovjyvioutjf32/07/2010 Pneumococcal Conjugate PCV 1308,12/26/2014Pneumococcal Polysaccharide BVNE3731,05/28/2010,05/26/2010Pneumococcal, Lxtfaquisom25/01/1999RSV, recombinant, protein subunit RSVpreF, adjuvant reconstitu, 120mcg/0.5mL, PF (Arexvy)01/29/20241332WVTL-JYZ-1 (COVID-19) vaccine, mRNA, spike protein, LNP, bivalent, PF03/26/2022Td (adult), bqfbwkujpcp84/26/5730Ikne61/30/2016,11/24/2015 Zoster, Knehaftdvlt65/04/2021,10/25/2020,10/24/2020Zoster, live01/12/2011, 12/24/2010 Family History Medical HistoryRelationNameCommentsKidney diseaseBrother 1James B SoudersVision lossBrother 2David Sofia sHeart attackFatherRichard L SoudersHeart disease FatherRichard L SoudersKidney failureMotherVision lossMotherRelationNameStatus CommentsBrother 1James B SoudersBrother 2David Sofia sAliveFatherRichard L SoudersDeceasedMotherDeceased Social History Tobacco UseTypesPacks/DayYears UsedDateSmoking Tobacco: IwcggfNkoagmrtex165.1 1953 - 11/23/1976PipeCigarsSmokeless Tobacco: Never Tobacco Cessation:Counseling Given: Not Answered Alcohol UseStandard Drinks/WeekCommentsNot Currently2 (1 standard drink = 0.6 oz pure alcohol)social mbjdK0872 Health LiteracyAnswerDate RecordedHow often do you need to have someone help you when you read instructions, pamphlets, or other written material from your doctor or pharmacy?Sqqxkb6404/05/2024Humiliation, Afraid, Rape, and Kick questionnaireAnswerDate RecordedWithin the [...] times a week04/05/2024How often do you attend confucianism or latter day services?More than 4 times per year4Do you belong to any clubs or organizations such as confucianism groups, unions, fraternal or athletic groups, or [...] at all 04/05/2024HQ-2AnswerDate RecordedPatient Health Questionnaire-2 Score0 04/06/2025[facility] [place] [facility] - Occupational Stress QuestionnaireAnswerDate RecordedDo you feel stress - tense, restless, nervous, or anxious, or unable to sleep at night because yourmind is troubled all the time - these days?Only a aptedc7004/05/2024Exercise Vital SignAnswerDate Recorded On average, how many [...] steady place to sleep or slept in bolivarelter (including now)?No11/26/2022Housing Stability Vital SignAnswerDate RecordedIn the last 12 months, was there a time when you were not able to pay the mortgage or rent on time?No04/05/2024In the past 12 months, how many times have you moved where you were living? At any time in the past 12 months, were you homeless or living in a mcc (including now)?No04/05/2024Sex and Gender InformationValueDate RecordedSex Assigned at BirthNot on fileLegal MyyVbcf0508/07/2022 7:37 PM EDTGender Identity Male08/07/2022 7:37 PM EDTSexual OrientationNot on file Last Filed Vital Signs Vital SignReadingTime TakenCommentsBlood Efaxequz259/6404/13/2025 9:59 AM EST Sheeo778204/13/2025 9:59 AM IPZSvidndeoagu60.4 ??C (99.3 ??F)06/28/2024 9:08 AM ESTRespiratory Kgfh741006/13/2024 9:59 AM ESTOxygen Whedjemmcf69%04/13/2025 9:59 AM ESTInhaled Oxygen Concentration--Ixxyyj416 kg (222 lb 6.4 oz)04/13/2025 9:59 AM JSGIsmkec518.4 cm (5' 10.25 )04/13/2025 9:59 AM ESTBody Mass Index31.68 04/13/2025 9:59 AM EST Plan of Treatment DateTypeDepartmentCare Team (Latest Contact Info)Yywzdohljet96/20/2026 10:20 AM EDTOffice Visit [facility] [address] [place] [address] Helen Cagle MD [address] [place], [place] [phone] 03/14/2026 10:00 AM EDTOffice Visit [facility] [address] [place] [phone] Angeline Brennan APRN-PRACTICE BILLING ASSOCIATE [address] [place] [address] Health MaintenanceDue DateLast DoneCommentsMedicare Annual Wellness (AWV) , 04/12/2024, 04/04/2023, Additional history exists Pneumococcal Vaccine: 65+ QlqosSjigwqlpp67/10/2015, 12/26/2014, 06/20/2010, Additional history existsInfluenza WtnwuniKapfbtbcp78/18/2025, 01/28/2024, 01/30/2023, Additional history exists Procedures Procedure NamePriorityDate/TimeAssociated DiagnosisCommentsSKIN / NAIL BIOPSY Smslgeh0805/12/2025 3:08 PM EST Neoplasm of unspecified behavior of bone, soft tissue, and skin [facility] HDTNMsfaonj12/26/2025 1:10 PM EST SRMCOH PROTHROMBIN TIME INR W/O CXLKXjgmrlj84/26/2025 1:10 PM EST HP LIVER FHXOBZkdxbhy26/26/2025 1:10 PM EST [facility] CMP (CMP) (FOR REMOTE [facility] USE)Mfetxjx3304/20/2025 1:10 PM EST ALL CBC WITH AUTO CEGOBrpwifa55/26/2025 1:10 PM EST HEMOGLOBIN W2APeoxnet87/19/2025 11:23 AM EST Hyperglycemia COMPREHENSIVE METABOLIC ZVNERRyeahwl21/19/2025 11:23 AM EST Chronic atrial fibrillation (HCC) CBC (INCLUDES DIFF/PLT)Vxflmya3704/13/2025 11:23 AM EST Chronic atrial fibrillation (HCC) CRYOTHERAPY SKIN MOTQINNyqnysu60/21/2025 9:14 AM EDT Inflamed seborrheic keratosis from Last 3 Months Results * Lesion biopsy (05/12/2025 3:08 PM [...] cc Authorizing ProviderResult TypeResult StatusNatalie Vickie Brennan FUSION JUNCTURE GRINDER-CNPDERM PROCEDURE ORDERABLESFinal Result * SRMCOH PROTHROMBIN TIME INR W/O COUM (04/20/2025 1:10 PM EST)ComponentValueRef RangeTest MethodAnalysis TimePerformed AtPathologist SignaturePROTHROMBIN TIME 11.29.0 - 11.6 secTBHTBH INR1.06TBHComment: DESIRED INR: 2.0-3.0 CONDITIONS NOT LISTED BELOW 2.5-3.5 FOR PROSTHETIC HEART VALVE REPLACEMENT 2.5-3.5 RECURRENT THROMBOSIS Specimen (Source)Anatomical Location / LateralityCollection Method / Volume Collection TimeReceived Time04/20/2025 1:10 PM EST04/20/2025 1:22 PM EST Narrative CLINISYNC - 04/20/2025 2:34 PM EST Authorizing ProviderResult TypeResult StatusGeneric External Data Provider CLINISYNCFinal ResultPerforming OrganizationAddressCity/State/ZIP CodePhone Number [facility] * HMHP LIVER PANEL (04/20/2025 1:10 PM EST)ComponentValueRef RangeTest Method Analysis TimePerformed AtPathologist SignatureBILIRUBIN DIRECT0.10.0 - 0.2 mg/dLTBHSpecimen (Source)Anatomical Location / LateralityCollection Method / VolumeCollection TimeReceived Time04/20/2025 1:10 PM EST04/20/2025 1:22 PM EST Narrative CLINISYNC - 04/20/2025 2:15 PM EST Authorizing ProviderResult TypeResult StatusGeneric External Data Provider CLINISYNCFinal ResultPerforming OrganizationAddressCity/State/ZIP CodePhone Number [place] * (ABNORMAL) [facility] CMP (CMP) (FOR REMOTE [facility] USE) (04/20/2025 1:10 PM EST) ComponentValueRef RangeTest MethodAnalysis TimePerformed AtPathologist TppedfrsgBUZNHL741537 - 145 mmol/LTBHPOTASSIUM4.13.5 - 5.1 mmol/LTBHCHLORIDE 47026 - 107 mmol/LTBHCARBON TCMEUTE70.9(H)21.0 - 32.0 mmol/LTBHANION GAP9.2TBH XITYNYB341(H)74 - 106 mg/dLTBHBLOOD UREA BZZZIRHW49.0(H)7.0 - 18.0 mg/dLTBH CREATININE1.060.70 - 1.30 mg/dLTBHTBH EGFR-AF SAMOAN>60>=60 mL/min/1.73m 2 TBHTBH EGFR-NON AF SAMOAN>60>=60 mL/min/1.73m 2TBHBUN CREATININE RATIO23.6 TBHCALCIUM8.98.5 - 10.1 mg/dLTBHBILIRUBIN TOTAL0.40.2 - 1.0 mg/dLTBHASPARTATE AMINO QXMUQCHODMK9069 - 37 U/LTBHALANINE ZRZEIPSKNSETMYMD7885 - 63 U/LTBH ALKALINE MGIRPQCWMXM7478 - 116 U/LTBHTOTAL PROTEIN7.66.4 - 8.2 g/dLTBHALBUMIN LEVEL3.63.4 - 5.0 g/dLTBHGLOBULIN4.0g/dLTBHALBUMIN GLOBULIN RATIO0.9TBH Specimen (Source)Anatomical Location / LateralityCollection Method / Volume Collection TimeReceived Time04/20/2025 1:10 PM EST04/20/2025 1:22 PM EST Narrative CLINISYSC - 04/20/2025 2:15 PM EST Authorizing ProviderResult TypeResult StatusGeneric External Data Provider CLINISYNCFinal ResultPerforming OrganizationAddressty/State/ZIP CodePhone Number [facility] * [facility] APTT (04/20/2025 1:10 PM EST)ComponentValueRef RangeTest MethodAnalysis TimePerformed AtPathologist SignaturePARTIAL THROMBOPLASTIN TIME28.822.3 - 36.2 secTBHSpecimen (Source)Anatomical Location / LateralityCollection Method / VolumeCollection TimeReceived Time04/20/2025 1:10 PM EST04/20/2025 1:22 PM EST Narrative CLINISYSC - 04/20/2025 2:34 PM EST Authorizing ProviderResult TypeResult StatusGeneric External Data Provider CLINISYNCFinal ResultPerforming OrganizationAddressty/State/ZIP CodePhone Number [facility] * (ABNORMAL) ALL CBC WITH AUTO DIFF (04/20/2025 1:10 PM EST)ComponentValueRef RangeTest MethodAnalysis TimePerformed AtPathologist SignatureTBH WBC5.54.0 - 11.0 10 3/uLTBHTBH RBC4.16(L)4.70 - 6.10 10 6/uLTBHTBH HGB13.0(L)14.0 - 18.0 g/dLTBHTBH HCT39.7(L)42.0 - 54.0 %TBHTBH MCV95.4(H)80.0 - 94.0 fLTBHTBH MCH 31.325.9 - 34.0 pgTBHTBH MCHC32.729.9 - 35.2 g/dLTBHTBH RDW12.611.0 - 15.0 % TBHTBH AKA202623 - 450 10 3/uLTBHTBH MPV9.99.5 - 13.5 fLTBHNEUTROPHILS PERCENT AUTO56.443.0 - 75.0 %TBHLYMPHOCYTES PERCENT AUTO26.320.5 - 60.0 %TBHMONOCYTES PERCENT AUTO10.91.7 - 12.0 %TBHTBH EO %5.30.9 - 7.0 %TBHBASOPHILS PERCENT AUTO 0.70.2 - 2.0 %TBHIMMATURE GRANULOCYTES PCT AUTO0.40.0 - 0.5 %TBHNEUTROPHILS ABSOLUTE AUTO3.11.4 - 6.5 10 3/uLTBHLYMPHOCYTES ABSOLUTE AUTO1.51.2 - 3.8 10 3/uLTBHMONOCYTES ABSOLUTE AUTO0.60.3 - 0.8 10 3/uLTBHTBH EO #0.30.0 - 0.7 10 3/uLTBHBASOPHILS ABSOLUTE AUTO0.00.0 - 0.1 10 3/uLTBHIMMATURE GRANULOCYTES ABS AUTO0.020.00 - 0.03 10 3/uLTBHSpecimen (Source)Anatomical Location / LateralityCollection Method / VolumeCollection TimeReceived Time04/20/2025 1:10 PM EST04/20/2025 1:22 PM EST Narrative CLINISYNC - 04/20/2025 1:40 PM EST Authorizing ProviderResult TypeResult StatusGeneric External Data Provider CLINISYNCFinal ResultPerforming OrganizationAddressCity/State/ZIP CodePhone Number [facility] * CBC and differential (04/13/2025 11:23 AM EST)ComponentValueRef RangeTest MethodAnalysis TimePerformed AtPathologist SignatureWHITE BLOOD CELL COUNT5.7 3.8 - 10.8 Thousand/uLQUESTRED BLOOD CELL COUNT4.314.20 - 5.80 Million/uLQUEST JIHOYGXHOA05.513.2 - 17.1 g/fEDJPRPSLSKDUPLXE38.338.5 - 50.0 %HWEXZOFM73.880.0 - 100.0 mVGCNRVRQG78.327.0 - 33.0 kbDVCQNXBBS33.732.0 - 36.0 g/dLQUESTComment: For adults, a slight decrease in the calculated MCHC value (in the range of 30 to 32 g/dL) is most likely not clinically significant; however, it should be interpreted with caution in correlation with other red cell parameters and the patient's clinical condition. RDW11.711.0 - 15.0 %QUESTPLATELET QIRVO152239 - 400 Thousand/rPGLFEOAFP81.57.5 - 12.5 fLQUESTABSOLUTE NEUTROPHILS3,4141,500 - 7,800 cells/uLQUESTABSOLUTE LYMPHOCYTES1,859283 - 3,900 cells/uLQUESTABSOLUTE LHRIAUCSW151227 - 950 cells/uL QUESTABSOLUTE VWAKRUIOJJL92229 - 500 cells/uLQUESTABSOLUTE DEGNUJZAK997 - 200 cells/hESLAMQELVSOHMUPGJ99.9%QMSZHMEKTIEGPLHB98.4%VLLIRSOCLADCNG05.3%QUEST EOSINOPHILS3.7%QUESTBASOPHILS0.7%QUESTSpecimen (Source)Anatomical Location / LateralityCollection Method / VolumeCollection TimeReceived TimeBloodVenous blood specimen / Zjxmdzh8604/13/2025 11:23 AM EST04/13/2025 11:23 AM EST Narrative Resulting Agency Comment Performing Organization Information ?Site ID: QPT ?Name: [facility] ?Address: [address] [place] [phone] ?Director: Cruz Bashir MD Authorizing ProviderResult TypeResult [...] Volume Collection TimeReceived TimeBloodVenous blood specimen / Lajlzmg4504/13/2025 11:23 AM EST04/13/2025 11:23 AM EST Narrative Resulting Agency Comment Performing Organization Information ?Site ID: QPT ?Name: [facility] ?Address: [address] [place] [address], [address] [place] [phone] ?Director: Cruz Bashir MD Authorizing ProviderResult TypeResult StatusHelen Cagle MDLAB BLOOD ORDERABLES Final ResultPerforming OrganizationAddressCity/State/ZIP CodePhone Number [facility] * Comprehensive metabolic panel (04/13/2025 11:23 AM EST)ComponentValueRef Range Test MethodAnalysis TimePerformed AtPathologist MuelmzezyCjlhpcw6364 - 99 mg/dLQUESTComment: ? Fasting reference interval GFL046 - 25 mg/dLQUESTCreatinine1.030.70 - 1.22 mg/oTOCAZGOSTG29> OR = 60 mL/min/1.35t5VDMUUSSO/CREATININE RATIOSEE NOTE: (calc)QUESTComment: ?? Not Reported: BUN and Creatinine are within ?? reference range. ? Ldulcc981257 - 146 mmol/LQUESTPotassium, Bld4.13.5 - 5.3 mmol/HNHODVVduxlcob252 98 - 110 mmol/LQUESTCarbon Jvmfzcf0402 - 32 mmol/LQUESTCalcium9.18.6 - 10.3 mg/dLQUESTPROTEIN, TOTAL7.46.1 - 8.1 g/dLQUESTALBUMIN4.43.6 - 5.1 g/dLQUEST GLOBULIN3.01.9 - 3.7 g/dL (calc)QUESTALBUMIN/GLOBULIN RATIO1.51.0 - 2.5 (calc) QUESTBILIRUBIN, TOTAL0.70.2 - 1.2 mg/dLQUESTALKALINE PZMROZTXLPC6488 - 144 U/L JKDUBHOP1013 - 35 U/QTMKCMEDC950 - 46 U/LQUESTSpecimen (Source)Anatomical Location / LateralityCollection Method / VolumeCollection TimeReceived TimeBlood Venous blood specimen / Wftlrvh7204/13/2025 11:23 AM EST04/13/2025 11:23 AM EST Narrative Resulting Agency Comment Performing Organization Information ?Site ID: QPT ?Name: [facility] ?Address: [address] [place] [address], [address] [place] [phone] ?Director: Cruz Bashir MD Authorizing ProviderResult TypeResult StatusHelen Cagle MDLAB BLOOD ORDERABLES Final ResultPerforming OrganizationAddressCity/State/ZIP CodePhone Number [facility] * Cryotherapy, skin lesion (03/15/2025 9:14 AM EDT) Narrative Authorizing ProviderResult TypeResult StatusNatalie Vickie Brennan FUSION JUNCTURE GRINDER-CNPDERM PROCEDURE ORDERABLESFinal Result from Last 3 Months Insurance [place] [id number] Care Teams Team MemberRelationshipSpecialtyStart DateEnd Helen Cagle MD [address] [place], [place] [phone] PCP - Pending [facility] to [facility]10/17/22 Helen Cagle MD [address] [facility] [address] [place], [place] [phone] PCP - GeneralFamily Medicine11/05/22 Farzana Jimenez, RACHELLE [address] [facility] [place] [address] Registered [facility]01/12/25
--- OUTSIDE RECORDS SUMMARY | 2025-05-17 08:36 | XMS_ITS | Encounter Summary ---
Author Organization [facility] Address [address] [place] [address] Care Team Providers Care Services Mgr Name Role Phone Helen Cagle MD Unavailable Helen Cagle MD Primary Care Provider [phone] Farzana Jimenez RN Unavailable [phone] Encounter Details DateTypeDepartmentCare Team (Latest Contact Info)Xlovplqaurd85/18/2025Travel Social History Tobacco UseTypesPacks/DayYears UsedDateSmoking Tobacco: BqskyjKaugszniwq561.1 1952 - [birth year]23[birth year]1976PipeCigarsSmokeless Tobacco: NeverAlcohol UseStandard Drinks/WeekCommentsNot Currently2 (1 standard drink = 0.6 oz pure alcohol)social [id number] Health LiteracyAnswerDate RecordedHow often do you need to have someone help you when you read instructions, pamphlets, or other written material from your doctor or pharmacy?Yautas4104/05/2024Humiliation, Afraid, Rape, and Kick questionnaireAnswerDate RecordedWithin the [...] a week 04/05/2024How often do you attend advent or taoist services?More than 4 times per year04/05/2024o you belong to any clubs or organizations such as advent groups, unions, [employer] or athletic groups, or school groups?Yes04/05/2024How often do you attend meetings of the clubs or organizations you belong to?More than 4 times per year04/05/2024re you , , , , never , or living with a partner?Gptwipz5304/05/2024UDIT-CAnswerDate RecordedQ1: How often do you have a [...] heating?Not hard at all04/05/2024HQ-2AnswerDate RecordedPatient Health Questionnaire-2 Xrqqd63706/06/2024[facility] [place] [facility] - Occupational Stress QuestionnaireAnswerDate RecordedDo you feel stress - tense, restless, nervous, or anxious, or unable to sleep at night because yourmind is troubled all the time - these days?Only a nqnhfr1904/05/2024 Exercise Vital SignAnswerDate RecordedOn average, how many [...] steady place to sleep or [facility] ([facility])?No11/26/2022Housing Stability Vital SignAnswerDate RecordedIn the [...] InformationValueDate RecordedSex Assigned at BirthNot on fileLegal KxzKxib1808/07/2022 7:37 PM EDTGender QhangdawMygc36/15/2023 7:37 PM EDTSexual OrientationNot on filedocumented as of this encounter Plan of Treatment DateTypeDepartmentCare Team (Latest Contact Info)Vmrztxupkwg31/20/2026 10:20 AM EDTOffice Visit [facility] [address] [facility] [address] [facility] [phone] Helen Cagle MD [address] [place], [place] [id number] 03/14/2026 10:00 AM EDTOffice Visit [facility] [address] [place] [phone] Angeline Brennan APRN-MIXING AND DISPENSING SUPERVISOR [address] [place] [address] documented as of this encounter Visit Diagnoses Not on filedocumented in this encounter Additional Health Concerns AssessmentNoted TimePHQ-9 Depression Total Score: 5:33 PM EST documented as of this encounter Care Teams Team MemberRelationshipSpecialtyStart DateEnd Date Helen Cagle MD [address] [place], [place] [id number] PCP - [facility]CO [facility]10/17/22 Helen Cagle MD [address] [facility] [place] [address] PCP - GeneralFamily Medicine11/05/22 Farzana Jimenez, RACHELLE [address] [place] [address] Registered NurseFamily Medicine01/12/25documented as of this encounter
--- OUTSIDE RECORDS SUMMARY | 2025-05-17 08:36 | XMS_ITS | Encounter Summary ---
Author Organization [facility] Address [address] [place] [address] Care Team Providers Care Search Consultant Name Role Phone Helen Cagle MD Unavailable Helen Cagle MD Primary Care Provider [phone] Farzana Jimenez RN Unavailable [phone] Encounter Details DateTypeDepartmentCare Team (Latest Contact Info)Xosngqmwkbk76/18/2025amboo flowsheet [facility] [address] [address] [place] [phone] Angeline Brennan, CONTENT PRODUCER-RESIDENTIAL LEASING MANAGER [address] [facility] [address] [place] [address] Social History Tobacco UseTypesPacks/DayYears UsedDateSmoking Tobacco: TeofekEsztcfwglj683.1 1952 - 11/23/1975PipeCigarsSmokeless Tobacco: NeverAlcohol UseStandard Drinks/WeekCommentsNot Currently2 (1 standard drink = 0.6 oz pure alcohol)social [id number] Health LiteracyAnswerDate RecordedHow often do you need to have someone help you when you read instructions, pamphlets, or other written material from your doctor or pharmacy?Mwcpic1204/05/2024Humiliation, Afraid, Rape, and Kick questionnaireAnswerDate RecordedWithin the [...] a week 04/05/2024How often do you attend sabianism or restoration services?More than 4 times per year4Do you belong to any clubs or organizations such as sabianism groups, unions, fraternal or athletic groups, or school groups?Yes04/05/2024How often do you attend meetings of the clubs or organizations you belong to?More than 4 times per year04/05/2024re you , , , , never , or living with a partner?Tylqprz3804/05/2024UDIT-CAnswerDate RecordedQ1: How often do you have a [...] heating?Not hard at all04/05/2024HQ-2AnswerDate RecordedPatient Health Questionnaire-2 Gcvee50306/06/2024[facility] [place] [facility] Occupational Health - Occupational Stress QuestionnaireAnswerDate RecordedDo you feel stress - tense, restless, nervous, or anxious, or unable to sleep at night because yourmind is troubled all the time - these days?Only a xmihcn6204/05/2024 Exercise Vital SignAnswerDate RecordedOn average, how many [...] steady place to sleep or [facility])?No11/26/2022Housing Stability Vital SignAnswerDate RecordedIn the [...] InformationValueDate RecordedSex Assigned at BirthNot on fileLegal BxpUmiz0108/07/2022 7:37 PM EDTGender AedwmmeoNdmq43/15/2023 7:37 PM EDTSexual OrientationNot on filedocumented as of this encounter Plan of Treatment DateTypeDepartmentCare Team (Latest Contact Info)Wckranfmtks94/20/2026 10:20 AM EDTOffice Visit [facility] [address] [place] [address] Helen Cagle MD [address] [facility] [address] [place], [place] [id number] 03/14/2026 10:00 AM EDTOffice Visit [facility] [address] [place] [phone] Angeline Brennan, CONTENT PRODUCER-RESIDENTIAL LEASING MANAGER [address] [place] [address] documented as of this encounter Visit Diagnoses Not on filedocumented in this encounter Additional Health Concerns AssessmentNoted TimePHQ-9 Depression Total Score: 5:33 PM EST documented as of this encounter Care Teams Team MemberRelationshipSpecialtyStart DateEnd Date Helen Cagle MD [address] [facility] [place] [address] PCP - ACO [facility]10/17/22 Helen Cagle MD [address] [facility] [address] [place], [place] [id number] PCP - GeneralFamily Medicine11/05/22 Farzana Jimenez, RACHELLE [address] [facility] [place] [address] Registered NurseFamily Medicine01/12/25documented as of this encounter
[2025-05-17] MEDS: CEFAZOLIN SODIUM 2 GM/50 ML D5W PREMIX IV (11:13)
[2025-05-17] MEDS: MINERAL OIL LIGHT STERILE 10 ML VIAL TOPICAL (11:51)
[2025-05-17] MEDS: BACITRACIN OINTMENT 28.4 GM TUBE 1 APPLIC TOPICAL (13:13)
--- NOTE | 2025-05-17 13:17 | PM.URSON ---
Urology Surgery Operative Note Operative Note Procedure Date: 05/17/25 Time Out Performed: yes Pre-op Diagnosis: Phimosis and balanoposthitis Post-op Diagnosis: same as pre-op Procedures performed: 1. Circumcision. Anesthesia: General-LMA Primary Surgeon: Jacek Medina Complications: None Estimated blood loss (mL): 5 Findings: Very thick, indurated and friable foreskin tissue. 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 He has been getting splitting on the ends of the foreskin. He is strongly desirous for circumcision. He has signed an informed consent after risks were explained. Detailed description of Procedure: Patient was brought to the operating room and kept on the operating room table in the supine position. SCDs were placed on his lower extremities and turned on and functioning during the entire case. Timeout was done by all parties in the room. We all agreed upon the patient's identification and the planned procedures for this patient. General anesthesia was then administered via LMA. Genitalia were sterilely prepped and draped in the usual fashion. I started by marking a line around the external surface of the foreskin over the coronal sulcus. 15 blade scalpel was used and a circumscribing incision was made over this line. A dorsal slit had to be done in the usual fashion and I was then able to retract the foreskin over the shaft. A similar line was marked 5 mm proximal to the coronal sulcus on the mucosal side of the foreskin. A similar circumscribing incision was made. The foreskin sleeve was sharply dissected circumferentially. It was then transected and then amputated. It was sent for permanent sections. Small bleeders were coagulated with the needle tip Bovie cautery. Of note is that the tissues were very friable and bled simply from touching them. At this time I then placed 2 stay sutures upon joining the ends of the foreskin. 1 was at the ventral surface the other was at the dorsal surface. I then ran the foreskin edges with 4-0 Vicryl dipped in mineral oil. Upon completion there was an excellent repair. Some of the glans tissue simply sloughed from the chronic inflammatory condition. Bacitracin ointment was applied over the suture line. The Vaseline gauze was then wrapped. Plain gauze was then wrapped. A Coban dressing was then applied. The patient was then transferred to a [place] bed and wheeled to PACU in stable condition.
== END 2025-05-17 14:54 | disposition home or self-care (01) ==
LOC: SURGOUT 08:33
PROVIDERS: PCP Family Medicine; Visit Provider Urology
PROC: (CPT 54161; principal; 2025-05-17 10:15)
DX: N47.1 Phimosis (principal); N47.6 Balanoposthitis; F41.9 Anxiety disorder, unspecified; E03.9 Hypothyroidism, unspecified; E78.5 Hyperlipidemia, unspecified; I48.91 Unspecified atrial fibrillation; I10 Essential (primary) hypertension; Z87.442 Personal history of urinary calculi; H91.90 Unspecified hearing loss, unspecified ear; Z79.01 Long term (current) use of anticoagulants; Z79.899 Other long term (current) drug therapy; Z87.891 Personal history of nicotine dependence
CPT/HCPCS: 54161; 36415; 88304; J0690; J1100; J1885; J2405; J2704; J3010